=== PATIENT | female | born 1930 | race Caucasian/White ===

== ENCOUNTER 2017-02-28 21:20 | Inpatient (IN) | payer MEDICARE, MEDICAID ==
--- NOTE | 2017-02-28 21:46 | ED Physician Chart ---
Chief Complaint/HPI - Patient Information Date Seen:: 02/28/17 Time Seen:: 21:39 Chief Complaint:: failure to thrive History of Present Illness:: pt is a pt of dr almaguer. sent over for failure to thrive. pt has a rt side weakness from prior cva. usually is able to feed self. x last 4 days pt very weak. unable to speak or feed self at present which is acute change. Allergies:: Allergies Allergy/AdvReac Type Severity Reaction Status Date / Time Sulfa (Sulfonamide Allergy Verified 05/03/16 18:54 Antibiotics) Historian:: Medical Records Review:: Transfer documents Reviewed, Patient unable to respond Review of Systems - Review of Systems General/Constitutional: No fever, No chills, No weight loss, No weakness, No diaphoresis, No edema, No loss of appetite Skin: No skin lesions, No rash, No bruising Head: No headache, No light-headedness Eyes: No loss of vision, No pain, No diplopia ENT: No earache, No nasal drainage, No sore throat, No tinnitus Neck: No neck pain, No swelling, No thyromegaly, No stiffness, No mass noted Cardio Vascular: No chest pain, No palpitations, No PND, No orthopnea, No edema Pulmonary: No SOB, No cough, No sputum, No wheezing GI: No nausea, No vomiting, No diarrhea, No pain, No melena, No hematochezia, No constipation, No hematemesis G/U: No dysuria, No frequency, No hematuria Musculoskeletal: No bone or joint pain, No back pain, No muscle pain Endocrine: No polyuria, No polydipsia Psychiatric: No prior psych history, No depression, No anxiety, No suicidal ideation Hematopoietic: No bruising, No lymphadenopathy Allergic/Immuno: No urticaria, No angioedema Neurological: No syncope, No focal symptoms, Weakness (unable to feed self. rt side weak prior cva), No weakness, No paresthesia, No headache, No seizure, No dizziness, Confusion (nonverbal), No vertigo Past Medical History - Past Medical History Past Medical History: CVA/TIA (l side weak), Dementia Social History: Care Facility Psychiatricy History: Dementia Medication: Reviewed Family Medical History - Family Member Father History Unknown: Yes Ethnicity: Non- Living Status: Hx Family Cancer: No Hx Family Coronary Artery Disease: No Hx Family Congestive Heart Failure: No Hx Family Hypertension: No Hx Family Stroke: No Hx Family Diabetes: No Hx Family Seizures: No Hx Family Dementia: No Hx Family AIDS: No Hx Family HIV: No Hx Family COPD: No Hx Family Hepatitis: No Hx Family Psychiatric Problems: No Hx Family Tuberculosis: No Mother History Unknown: Yes Physical Exam - Physical Examination General/Constitutional: Awake, Well-developed, well-nourished, Alert, No distress, GCS 15, Non-toxic appearing, Ambulatory Other Gen/Cons comments:: oral mucosa very dry Head: Atraumatic Eyes: Lids, conjuctiva normal, PERRL, EOMI Skin: Nl inspection, No rash, No skin lesions, No ecchymosis, Well hydrated, No lymphadenopathy ENMT: External ears, nose nl, Nasal exam nl, Lips, teeth, gums nl Neck: Nontender, Full ROM w/o pain, No JVD, No nuchal rigidity, No bruit, No mass, No stridor Respiratory: Nl effort/Exclusion, Clear to Auscultation, No Wheeze/Rhonchi/Rales Cardio Vascular: RRR, No murmur, gallop, rubs, NL S1 S2 GI: No tenderness/rebounding/guarding, No organomegaly, No hernia, Normal BS's, Nondistended, No mass/bruits, No McBurney tenderness : No CVA tenderness Extremities: No tenderness or effusion, Full ROM, normal strength in all extremities, No edema, Normal digits & nails Neuro/Psych: DTR's symmetric, Normal sensory exam, No focal deficits Other Neuro/Psych comments:: nonverbal at present. rt side weak from prior cva. pt too confused to do close detailed neuro exam. Misc: normal gait, Normal back, No paraspinal tenderness Labs/Radiology/EKG Results - Lab Results Results: Laboratory Tests 02/28/17 02/28/17 02/28/17 22:19 22:19 22:19 WBC 15.1 H D RBC 3.99 Hgb 12.4 Hct 38.3 MCV 95.8 MCH 31.0 MCHC Differential 32.4 RDW 14.6 Plt Count 182 D MPV 8.9 Neutrophils % 78.5 Lymphocytes % 13.9 L Monocytes % 5.3 Eosinophils % 1.7 Basophils % 0.6 Sodium 145 Potassium 3.8 Chloride 115 H Carbon Dioxide 24.8 Anion Gap 9.0 BUN 19 Creatinine 0.8 Est GFR ( Amer) TNP Est GFR (Non-Af Amer) TNP BUN/Creatinine Ratio 23.8 Glucose 155 H Whole Bld Lactic Acid 2.47 H* Calcium 8.2 L Total Bilirubin 0.3 AST 27 ALT 40 Alkaline Phosphatase 64 Troponin I B-Natriuretic Peptide Total Protein 6.5 Albumin 2.6 L Globulin 3.9 Albumin/Globulin Ratio 0.7 L 02/28/17 22:19 WBC RBC Hgb Hct MCV MCH MCHC Differential RDW Plt Count MPV Neutrophils % Lymphocytes % Monocytes % Eosinophils % Basophils % Sodium Potassium Chloride Carbon Dioxide Anion Gap BUN Creatinine Est GFR ( Amer) Est GFR (Non-Af Amer) BUN/Creatinine Ratio Glucose Whole Bld Lactic Acid Calcium Total Bilirubin AST ALT Alkaline Phosphatase Troponin I 0.02 B-Natriuretic Peptide 122.0 H Total Protein Albumin Globulin Albumin/Globulin Ratio - Radiology Results Results: cxr blunting and indistinct at left costophrenic angle ED Septic Shock - . Is Septic Shock (SBP<90, OR Lactate>4 mmol\L) present?: No Reassessment (Disposition) - Reassessment Reassessment:: case dw dr almaguer..is admitting for hydration and tx poss pneumonia Reassessment Condition:: Unchanged - Diagnosis Diagnosis:: 1 dehydration 2 possible pneumonia 3 failure to thrive - Patient Disposition Admitted to:: Med/Surg Condition at Disposition:: Unchanged
[2017-02-28] MEDS ORDERED: Sodium Chloride 0.9% 1,000 ML IV ONE (21:47)
[2017-02-28 22:31] LABS: % BASOPHILS 0.6 % (0.0-2.0); % EOSINOPHILS 1.7 % (0.0-5.0); % LYMPHOCYTES 13.9 % (20.0-50.0); % MONOCYTES 5.3 % (2.0-10.0); % NEUTROPHILS 78.5 % (40.0-80.0); HEMATOCRIT 38.3 % (35.0-45.0); HEMOGLOBIN 12.4 gm/dL (11.7-16.1); MEAN CELL VOLUME 95.8 fl (81-100); MEAN CORPUSCULAR HGB CONC 32.4 pg (28.0-36.0); MEAN PLATELET VOLUME 8.9 fl; NEUTROPHILE ABSOLUTE 11.8 Th/cmm (1.8-8.0); RED BLOOD COUNT 3.99 Mil/cmm (3.80-5.20); RED CELL DISTRIBUTION WIDTH 14.6 % (11.5-20.0)
[2017-02-28 22:34] LABS: WHITE BLOOD COUNT 15.1 Th/cmm (4.8-10.8)
[2017-02-28 22:35] LABS: PLATELET COUNT 182 Th/cmm (150-400)
[2017-02-28 22:47] LABS: TROP I 0.02 ng/mL (0.01-0.05)
[2017-02-28 22:49] LABS: ALB/GLOB RATIO 0.7 (1.0-1.8); ALKALINE PHOSPHATASE 64 U/L (34-104); BILIRUBIN,TOTAL 0.3 mg/dL (0.3-1.0); BUN - UREA NITROGEN 19 mg/dL (7-25); BUN/CREATININE RATIO 23.8; CALCIUM SERUM 8.2 mg/dL (8.6-10.3); CARBON DIOXIDE 24.8 mEq/L (21.0-31.0); CHLORIDE 115 mEq/L (98-107); CREATININE - SERUM 0.8 mg/dL (0.6-1.2); GLUCOSE 155 mg/dL (70-105); POTASSIUM SERUM 3.8 mEq/L (3.5-5.1); SGOT 27 U/L (13-39); SGPT/ALT 40 U/L (7-52); SODIUM SERUM 145 mEq/L (136-145)
[2017-03-01] MEDS ORDERED: guaiFENesin 200 MG/10 ML UDC PO PRN (00:06)
[2017-03-01] MEDS ORDERED: D5-0.45NS 1,000 ML IV SCH (00:15)
[2017-03-01] MEDS: Ipratropium Neb 0.5 mg/2.5 mL UD IH SCH ×4 (08:53→19:37)
[2017-03-01] MEDS: Albuterol Nebulizer 2.5mg/3mL HHN SCH ×4 (08:53→19:37)
[2017-03-01] MEDS: Aspirin 81mg Chewable Tab PO SCH (09:22)
[2017-03-01] MEDS: Multivitamin w/ Minerals Tab PO SCH (09:22)
--- NOTE | 2017-03-01 11:15 | Diagnostic Imaging Report ---
CT scan of the brain without intravenous contrast HISTORY: Stroke, CVA Total DLP equals 582 CTDI equals 30.1 Axial sections were obtained from the base of the skull to the vertex. There is prominence/enlargement of the ventricular system size. Associated enlargement of cerebral sulci and subarachnoid cisterns. Findings are consistent with changes of generalized cerebral atrophy. No acute parenchymal abnormalities. No acute cerebral hemorrhage. Hypodensity is seen within the supratentorial white matter regions without mass effect. The findings may be associated with chronic small vessel ischemic disease. No extra-axial masses or abnormal fluid collections. IMPRESSION: 1. No acute abnormalities 2. Cerebral atrophy. The ventricular system size is rather pronounced imparity to the enlarged cerebral sulci and subarachnoid cisterns. Hydrocephalus cannot be definitely excluded. 3. Supratentorial white matter changes that may reflect chronic small vessel ischemic disease
--- NOTE | 2017-03-01 11:16 | Diagnostic Imaging Report ---
Portable chest x-ray HISTORY: Shortness of breath The overall heart size is difficult to assess with portable technique in of rib poor inspiration. Atherosclerotic calcification seen in the aorta. No acute focal pulmonary parenchymal processes. Arthritic changes noted about the shoulder regions. IMPRESSION: 1. No acute focal pulmonary processes 2. Atherosclerotic vascular changes
--- NOTE | 2017-03-01 12:29 | History and Physical ---
History of Present Illness - HPI Chief Complaint: POOR ORAL INTAKE HPI: THIS IS A 86 YEAR OLD FEMALE WELL KNOWN TO NE RESIDENT OF [facility] WHO HAS A 4 DAY HISTORY OF POOR ORAL INTAKE. PATIENT WAS GIVEN IVF FOR HYDRATION AND MEGACE 400MG DESPITE OF THE INTERVENTIONS DONE, PATIENT WAS STILL NOTED WITH POOR ORAL INTAKE, FOR THIS REASON PATIENT IS ADMITTED TO THE MEDSURG UNIT. Vital Signs: Last Vital Signs Temp 98.2 F 03/01/17 08:15 Pulse 85 03/01/17 08:54 Resp 18 03/01/17 08:54 BP 116/65 03/01/17 08:15 Pulse Ox 100 03/01/17 08:54 Past Medical History Cardiovascular: Report: No Pertinent Hx Pulmonary: Report: No Pertinent Hx REPORTING SPECIALIST: Report: Dementia GI: Report: Other (DYSPHAGIA) Psych: Report: Depression Musculoskeletal: Report: Other (MUSCLE WEAKNESS) Infectious Disease: Report: No Pertinent Hx Renal/: Report: No Pertinent Hx Endocrine: Report: No Pertinent Hx - Past Surgical History Past Surgical History: No pertinent Hx Family Medical History - Family Member Father History Unknown: Yes (NONCONTRIBUTORY) Ethnicity: Non- Living Status: Hx Family Cancer: No Hx Family Coronary Artery Disease: No Hx Family Congestive Heart Failure: No Hx Family Hypertension: No Hx Family Stroke: No Hx Family Diabetes: No Hx Family Seizures: No Hx Family Dementia: No Hx Family AIDS: No Hx Family HIV: No Hx Family COPD: No Hx Family Hepatitis: No Hx Family Psychiatric Problems: No Hx Family Tuberculosis: No Other Medical History: Pt. unable to state due to mental status Mother History Unknown: Yes Social History Smoke: No Alcohol: None Drugs: None Lives: Jail Health Maintenance Health Maintenance: Influenza Vaccine, Pneumococcal Vaccine - Medications Home Medications: Home Medication Medication Instructions Recorded Type Aspirin [Aspirin Chewable] 81 mg PO DAILY 12/24/14 History Magnesium Hydroxide [Milk of 30 ml PO HS 12/24/14 History Magnesia] Multivitamin, Minerals, and 39 1 tab PO DAILY 12/24/14 History [Multi Formula 50] Acetaminophen [Tylenol] 2 tab PO Q4H PRN 05/03/16 History Megestrol Acetate [Megace] 400 mg PO BID 05/03/16 History Cholecalciferol (Vitamin D3) 1,000 unit PO DAILY 02/28/17 History [Vitamin D3] Donepezil HCl [Donepezil HCl Odt] 5 mg PO HS 02/28/17 History Mirtazapine [Remeron*] 15 mg PO HS 02/28/17 History Sulfamethoxazole/TMP [Bactrim DS] 1 tab PO Q12HR 02/28/17 History - Allergies Allergies/Adverse Reactions: Allergies Allergy/AdvReac Type Severity Reaction Status Date / Time Sulfa (Sulfonamide Allergy Verified 05/03/16 18:54 Antibiotics) Review of Systems - Review of Systems Constitutional: Denies: Fever, Chills Eyes: Denies: Pain, Vision Change ENT: Denies: Ear Pain, Ear Discharge, Nose Pain Respiratory: Denies: Cough, Dry, Shortness of Breath Cardiovascular: Denies: Chest Pain, Edema Gastrointestinal: Denies: Nausea, Diarrhea, Constipation Genitourinary: Report: Incontinence. Denies: No Significant Musculoskeletal: Denies: Neck Pain, Shoulder Pain Skin: Denies: Rash Neurological: Report: Weakness Physical Exam - Physical Exam HEENT: Report: Ears Nose Throat within normal limits Neck: Report: Within normal limits Cardiovascular Systems: Report: +s1/s2 noted, Regular, Rate and Rhythm Respiratory: Report: Rhonchi Abdomen: Report: Non-tender to palpation, Bowel Sounds are within normal limits Back: Report: Inspection of back is within normal limits. Skin: Report: Color of skin is within normal limits Neuro/Psych: Report: A+Ox3, No motor deficit, No sensory deficit - Lab Results All Lab Results last 24 hours: Laboratory Last Values WBC 15.1 Th/cmm (4.8-10.8) H D 02/28/17 22:19 RBC 3.99 Mil/cmm (3.80-5.20) 02/28/17 22:19 Hgb 12.4 gm/dL (11.7-16.1) 02/28/17 22:19 Hct 38.3 % (35.0-45.0) 02/28/17 22:19 MCV 95.8 fl (81-100) 02/28/17 22:19 MCH 31.0 pg (27.0-31.0) 02/28/17 22: MCHC Differential 32.4 pg (28.0-36.0) 02/28/17 22: RDW 14.6 % (11.5-20.0) 02/28/17 22:19 Plt Count 182 Th/cmm (150-400) D 02/28/17 22:19 MPV 8.9 fl 02/28/17 22:19 Neutrophils % 78.5 % (40.0-80.0) 02/28/17 22:19 Lymphocytes % 13.9 % (20.0-50.0) L 02/28/17 22:19 Monocytes % 5.3 % (2.0-10.0) 02/28/17 22:19 Eosinophils % 1.7 % (0.0-5.0) 02/28/17 22:19 Basophils % 0.6 % (0.0-2.0) 02/28/17 22:19 Sodium 145 mEq/L (136-145) 02/28/17 22:19 Potassium 3.8 mEq/L (3.5-5.1) 02/28/17 22:19 Chloride 115 mEq/L (98-107) H 02/28/17 22:19 Carbon Dioxide 24.8 mEq/L (21.0-31.0) 02/28/17 22:19 Anion Gap 9.0 (7.0-16.0) 02/28/17 22:19 BUN 19 mg/dL (7-25) 02/28/17 22:19 Creatinine 0.8 mg/dL (0.6-1.2) 02/28/17 22:19 Est GFR ( Amer) TNP 02/28/17 22:19 Est GFR (Non-Af Amer) TNP 02/28/17 22:19 BUN/Creatinine Ratio 23.8 02/28/17 22:19 Glucose 155 mg/dL (70-105) H 02/28/17 22:19 Whole Bld Lactic Acid 1.75 mmol/L (0.60-1.99) 03/01/17 01:25 Calcium 8.2 mg/dL (8.6-10.3) L 02/28/17 22:19 Total Bilirubin 0.3 mg/dL (0.3-1.0) 02/28/17 22:19 AST 27 U/L (13-39) 02/28/17 22:19 ALT 40 U/L (7-52) 02/28/17 22:19 Alkaline Phosphatase 64 U/L (34-104) 02/28/17 22:19 Troponin I 0.02 ng/mL (0.01-0.05) 02/28/17 22:19 B-Natriuretic Peptide 122.0 pg/mL (5.0-100.0) H 02/28/17 22:19 Total Protein 6.5 gm/dL (6.0-8.3) 02/28/17 22:19 Albumin 2.6 gm/dL (3.7-5.3) L 02/28/17 22:19 Globulin 3.9 gm/dL 02/28/17 22:19 Albumin/Globulin Ratio 0.7 (1.0-1.8) L 02/28/17 22:19 Laboratory Results - last 24 hr 03/01/17 01:25 Whole Bld Lactic Acid 1.75 - Assessment Assessment: LACTIC ACIDOSIS FAILURE TO THRIVE POOR ORAL INTAKE POSSIBLE PNA DYSPHAGIA DEMENTIA HX CVA - Plan Plan: EMPIRIC IVABX CALORIE COUNT IVF FOR HYDRATION ASPIRATION PRECAUTION PSYCH CONSULT AM LABS MONITOR ELECTROLYTE LEVELS
--- NOTE | 2017-03-01 12:37 | Internal Medicine Prog Note ---
Internal Medicine Subjective - Subjective Service Date: 03/01/17 Internal Medicine Objective - Results Result Diagrams: 02/28/17 22:19 02/28/17 22:19 Recent Labs: Laboratory Last Values WBC 15.1 Th/cmm (4.8-10.8) H D 02/28/17 22:19 RBC 3.99 Mil/cmm (3.80-5.20) 02/28/17 22:19 Hgb 12.4 gm/dL (11.7-16.1) 02/28/17 22:19 Hct 38.3 % (35.0-45.0) 02/28/17 22:19 MCV 95.8 fl (81-100) 02/28/17 22:19 MCH 31.0 pg (27.0-31.0) 02/28/17 22:19 MCHC Differential 32.4 pg (28.0-36.0) 02/28/17 22:19 RDW 14.6 % (11.5-20.0) 02/28/17 22:19 Plt Count 182 Th/cmm (150-400) D 02/28/17 22:19 MPV 8.9 fl 02/28/17 22:19 Neutrophils % 78.5 % (40.0-80.0) 02/28/17 22:19 Lymphocytes % 13.9 % (20.0-50.0) L 02/28/17 22:19 Monocytes % 5.3 % (2.0-10.0) 02/28/17 22:19 Eosinophils % 1.7 % (0.0-5.0) 02/28/17 22:19 Basophils % 0.6 % (0.0-2.0) 02/28/17 22:19 Sodium 145 mEq/L (136-145) 02/28/17 22:19 Potassium 3.8 mEq/L (3.5-5.1) 02/28/17 22:19 Chloride 115 mEq/L (98-107) H 02/28/17 22:19 Carbon Dioxide 24.8 mEq/L (21.0-31.0) 02/28/17 22:19 Anion Gap 9.0 (7.0-16.0) 02/28/17 22:19 BUN 19 mg/dL (7-25) 02/28/17 22:19 Creatinine 0.8 mg/dL (0.6-1.2) 02/28/17 22:19 Est GFR ( Amer) TNP 02/28/17 22:19 Est GFR (Non-Af Amer) TNP 02/28/17 22:19 BUN/Creatinine Ratio 23.8 02/28/17 22:19 Glucose 155 mg/dL (70-105) H 02/28/17 22:19 Whole Bld Lactic Acid 1.75 mmol/L (0.60-1.99) 03/01/17 01:25 Calcium 8.2 mg/dL (8.6-10.3) L 02/28/17 22:19 Total Bilirubin 0.3 mg/dL (0.3-1.0) 02/28/17 22:19 AST 27 U/L (13-39) 02/28/17 22:19 ALT 40 U/L (7-52) 02/28/17 22:19 Alkaline Phosphatase 64 U/L (34-104) 02/28/17 22:19 Troponin I 0.02 ng/mL (0.01-0.05) 02/28/17 22:19 B-Natriuretic Peptide 122.0 pg/mL (5.0-100.0) H 02/28/17 22:19 Total Protein 6.5 gm/dL (6.0-8.3) 02/28/17 22:19 Albumin 2.6 gm/dL (3.7-5.3) L 02/28/17 22:19 Globulin 3.9 gm/dL 02/28/17 22:19 Albumin/Globulin Ratio 0.7 (1.0-1.8) L 02/28/17 22:19 - Physical Exam Vitals and I&O: Vital Signs Temp 98.2 F 03/01/17 08:15 Pulse 85 03/01/17 08:54 Resp 18 03/01/17 08:54 BP 116/65 03/01/17 08:15 Pulse Ox 100 03/01/17 08:54 Intake & Output 02/28/17 03/01/17 03/01/17 18:59 06:59 18:59 Weight (lbs) 126 lb Active Medications: Current Medications Acetaminophen (Tylenol) 650 mg PO Q4H PRN PRN Reason: Pain Or Fever above 101 Stop: 04/30/17 00:05 Albuterol Sulfate (Albuterol 2.5mg/3ml Neb Ud) 2.5 mg HHN QIDRT [facility] Stop: 04/30/17 06:59 Last Admin: 03/01/17 08:53 Dose: 2.5 mg Aspirin (Aspirin Chewable) 81 mg PO DAILY [facility] Stop: 04/30/17 08:59 Last Admin: 03/01/17 09:22 Dose: 81 mg Cholecalciferol (Vitamin D3) 1,000 iu PO DAILY [facility] Stop: 04/30/17 08:59 Last Admin: 03/01/17 09:22 Dose: 1,000 iu Donepezil HCl (Aricept) 5 mg PO HS [facility] Stop: 04/30/17 20:59 Guaifenesin (Robitussin) 200 mg PO Q4HR PRN PRN Reason: Cough or Congestion Stop: 04/30/17 00:05 Dextrose/Sodium Chloride (D5-0.45ns) 1,000 mls @ 100 mls/hr IV .Q10H [facility] Stop: 04/30/17 00:14 Last Admin: 03/01/17 09:23 Dose: 100 mls/hr Cefepime HCl 1 gm/ Dextrose 50 mls @ 100 mls/hr IV Q12HR [facility] Stop: 04/30/17 08:59 Last Admin: 03/01/17 09:24 Dose: 100 mls/hr Ipratropium [place] (Atrovent Neb 0.5mg/2.5ml) 0.5 mg IH QIDRT [facility] Stop: 04/30/17 06:59 Last Admin: 03/01/17 08:53 Dose: 0.5 mg Magnesium Hydroxide (Milk Of Magnesia) 30 ml PO HS [facility] Stop: 04/30/17 20:59 Megestrol Acetate (Megace) 400 mg PO BID [facility] Stop: 04/30/17 08:59 Last Admin: 03/01/17 09:22 Dose: 400 mg Ondansetron HCl (Zofran) 4 mg IV Q8H PRN PRN Reason: Nausea / Vomiting Stop: 04/30/17 00:05 - Procedures Procedures: Procedures Procedure Code Date OTHER GROUP THERAPY 94.44 03/07/14 Internal Medicine Assmt/Plan - Assessment Assessment: SEVERE PROTEIN CALORIE MALNUTRITION LACTIC ACIDOSIS FAILURE TO THRIVE POOR ORAL INTAKE POSSIBLE PNA DYSPHAGIA DEMENTIA HX CVA - Plan Plan: EMPIRIC IVABX CALORIE COUNT IVF FOR HYDRATION ASPIRATION PRECAUTION PSYCH CONSULT AM LABS MONITOR ELECTROLYTE LEVELS
[2017-03-01] MEDS ORDERED: VTE Chemical Prophylaxis Screen/Admission MC PRN (14:18)
[2017-03-01] MEDS: Magnesium Hydroxide (MOM) 30 mL UDC PO SCH (21:59)
[2017-03-01] MEDS: D5-0.45NS 1,000 ML IV SCH (22:00)
[2017-03-02] MEDS: Albuterol Nebulizer 2.5mg/3mL HHN SCH ×4 (07:13→19:50)
[2017-03-02] MEDS: Ipratropium Neb 0.5 mg/2.5 mL UD IH SCH ×4 (07:13→19:50)
[2017-03-02 07:14] LABS: % BASOPHILS 0.3 % (0.0-2.0); % MONOCYTES 8.6 % (2.0-10.0); % NEUTROPHILS 67.1 % (40.0-80.0); HEMOGLOBIN 11.2 gm/dL (11.7-16.1); MEAN CELL VOLUME 96.1 fl (81-100); MEAN CORPUSCULAR HGB CONC 33.3 pg (28.0-36.0); MEAN PLATELET VOLUME 8.8 fl; NEUTROPHILE ABSOLUTE 7.4 Th/cmm (1.8-8.0); PLATELET COUNT 163 Th/cmm (150-400); RED CELL DISTRIBUTION WIDTH 14.1 % (11.5-20.0)
[2017-03-02 07:16] LABS: ANION GAP 6.2 (7.0-16.0); BUN - UREA NITROGEN 15 mg/dL (7-25); BUN/CREATININE RATIO 21.4; CALCIUM SERUM 8.1 mg/dL (8.6-10.3); CARBON DIOXIDE 23.4 mEq/L (21.0-31.0); CHLORIDE 114 mEq/L (98-107); CREATININE - SERUM 0.7 mg/dL (0.6-1.2); GLUCOSE 115 mg/dL (70-105); POTASSIUM SERUM 3.6 mEq/L (3.5-5.1); SODIUM SERUM 140 mEq/L (136-145)
[2017-03-02 07:27] LABS: HEMATOCRIT 33.6 % (35.0-45.0); WHITE BLOOD COUNT 10.9 Th/cmm (4.8-10.8)
[2017-03-02] MEDS: Aspirin 81mg Chewable Tab PO SCH (09:14)
[2017-03-02] MEDS: Multivitamin w/ Minerals Tab PO SCH (09:14)
--- NOTE | 2017-03-02 10:48 | Diagnostic Imaging Report ---
Portable chest x-ray Time: 1030 hours History: Pneumonia Allowing for portable technique the heart size is normal. No focal pulmonary parenchymal processes. No hilar or mediastinal abnormalities. Aortic arch calcified. Mild COPD changes are noted. Impression: No acute abnormalities.
--- NOTE | 2017-03-02 12:11 | Internal Medicine Prog Note ---
Internal Medicine Subjective - Subjective Service Date: 03/02/17 (PER NURSING STAFF PATIENT STILL HAS POOR ORAL INTAKE. PATIENT HAD A SWALLOW EVAL TODAY AND PASSED WITH PUREE DIET) Patient seen and examined:: with staff Patient is:: awake Patient Complaints of:: cough Per staff patient has:: poor appetite, poor oral intake Internal Medicine Objective - Results Result Diagrams: 03/02/17 06:40 03/02/17 06:40 Recent Labs: Laboratory Last Values WBC 10.9 Th/cmm (4.8-10.8) H D 03/02/17 06:40 RBC 3.50 Mil/cmm (3.80-5.20) L 03/02/17 06:40 Hgb 11.2 gm/dL (11.7-16.1) L 03/02/17 06:40 Hct 33.6 % (35.0-45.0) L D 03/02/17 06:40 MCV 96.1 fl (81-100) 03/02/17 06:40 MCH 32.0 pg (27.0-31.0) H 03/02/17 06:40 MCHC Differential 33.3 pg (28.0-36.0) 03/02/17 06:40 RDW 14.1 % (11.5-20.0) 03/02/17 06:40 Plt Count 163 Th/cmm (150-400) 03/02/17 06:40 MPV 8.8 fl 03/02/17 06:40 Neutrophils % 67.1 % (40.0-80.0) 03/02/17 06:40 Lymphocytes % 21.0 % (20.0-50.0) 03/02/17 06:40 Monocytes % 8.6 % (2.0-10.0) 03/02/17 06:40 Eosinophils % 3.0 % (0.0-5.0) 03/02/17 06:40 Basophils % 0.3 % (0.0-2.0) 03/02/17 06:40 Sodium 140 mEq/L (136-145) 03/02/17 06:40 Potassium 3.6 mEq/L (3.5-5.1) 03/02/17 06:40 Chloride 114 mEq/L (98-107) H 03/02/17 06:40 Carbon Dioxide 23.4 mEq/L (21.0-31.0) 03/02/17 06:40 Anion Gap 6.2 (7.0-16.0) L 03/02/17 06:40 BUN 15 mg/dL (7-25) 03/02/17 06:40 Creatinine 0.7 mg/dL (0.6-1.2) 03/02/17 06:40 Est GFR ( Amer) TNP 03/02/17 06:40 Est GFR (Non-Af Amer) TNP 03/02/17 06:40 BUN/Creatinine Ratio 21.4 03/02/17 06:40 Glucose 115 mg/dL (70-105) H 03/02/17 06:40 Whole Bld Lactic Acid 1.75 mmol/L (0.60-1.99) 03/01/17 01:25 Calcium 8.1 mg/dL (8.6-10.3) L 03/02/17 06:40 Total Bilirubin 0.3 mg/dL (0.3-1.0) 02/28/17 22:19 AST 27 U/L (13-39) 02/28/17 22:19 ALT 40 U/L (7-52) 02/28/17 22:19 Alkaline Phosphatase 64 U/L (34-104) 02/28/17 22:19 Ammonia 45 umol/L (16-53) 03/02/17 06:40 Troponin I 0.02 ng/mL (0.01-0.05) 02/28/17 22:19 B-Natriuretic Peptide 122.0 pg/mL (5.0-100.0) H 02/28/17 22:19 Total Protein 6.5 gm/dL (6.0-8.3) 02/28/17 22:19 Albumin 2.6 gm/dL (3.7-5.3) L 02/28/17 22:19 Globulin 3.9 gm/dL 02/28/17 22:19 Albumin/Globulin Ratio 0.7 (1.0-1.8) L 02/28/17 22:19 - Physical Exam Vitals and I&O: Vital Signs Temp 98.2 F 03/02/17 04:00 Pulse 84 03/02/17 07:13 Resp 20 03/02/17 08:00 BP 102/56 03/02/17 04:00 Pulse Ox 98 03/02/17 07:13 Intake & Output 03/01/17 03/02/17 03/02/17 18:59 06:59 18:59 Intake Total 100 Balance 100 Weight (lbs) 157 lb 157 lb Intake: Intake, IV Amount 100 Cefepime 1 gm In Dextrose 100 5% 50 ml @ 100 mls/hr IV Q12HR [facility] Rx#:[id number] Other: # Voids 3 1 # Bowel Movements 1 Active Medications: Current Medications Acetaminophen (Tylenol) 650 mg PO Q4H PRN PRN Reason: Pain Or Fever above 101 Stop: 04/30/17 00:05 Albuterol Sulfate (Albuterol 2.5mg/3ml Neb Ud) 2.5 mg HHN QIDRT [facility] Stop: 04/30/17 06:59 Last Admin: 03/02/17 07:13 Dose: 2.5 mg Aspirin (Aspirin Chewable) 81 mg PO DAILY [facility] Stop: 04/30/17 08:59 Last Admin: 03/02/17 09:14 Dose: 81 mg Cholecalciferol (Vitamin D3) 1,000 iu PO DAILY [facility] Stop: 04/30/17 08:59 Last Admin: 03/02/17 09:14 Dose: 1,000 iu Donepezil HCl (Aricept) 5 mg PO HS [facility] Stop: 04/30/17 20:59 Last Admin: 03/01/17 21:38 Dose: 5 mg Guaifenesin (Robitussin) 200 mg PO Q4HR PRN PRN Reason: Cough or Congestion Stop: 04/30/17 00:05 Heparin Sodium (Porcine) (Heparin) 5,000 units SUBQ Q12HR [facility] Stop: 04/30/17 20:59 Last Admin: 03/02/17 10:15 Dose: 5,000 units Cefepime HCl 1 gm/ Dextrose 50 mls @ 100 mls/hr IV Q12HR [facility] Stop: 04/30/17 08:59 Last Admin: 03/02/17 10:16 Dose: 100 mls/hr Dextrose/Sodium Chloride (D5-0.45ns) 1,000 mls @ 80 mls/hr IV .[id number] [facility] Stop: 04/30/17 00:14 Last Admin: 03/01/17 22:00 Dose: 80 mls/hr Ipratropium [place] (Atrovent Neb 0.5mg/2.5ml) 0.5 mg IH QIDRT [facility] Stop: 04/30/17 06:59 Last Admin: 03/02/17 07:13 Dose: 0.5 mg Magnesium Hydroxide (Milk Of Magnesia) 30 ml PO HS [facility] Stop: 04/30/17 20:59 Last Admin: 03/01/17 21:59 Dose: 30 ml Megestrol Acetate (Megace) 400 mg PO BID [facility] Stop: 04/30/17 08:59 Last Admin: 03/02/17 09:14 Dose: 400 mg Miscellaneous ([employer] Prophylaxis Screen/ Admission) 1 ea [facility] PRN PRN PRN Reason: PROTOCOL Stop: 04/30/17 14:17 Ondansetron HCl (Zofran) 4 mg IV Q8H PRN PRN Reason: Nausea / Vomiting Stop: 04/30/17 00:05 General: weak, alert HEENT: NC/AT Neck: Supple Lungs: congested Cardiovascular: RRR, Normal S1, Normal S2, without murmur Abdomen: soft, non-tender, non-distended, positive bowel sound Extremities: excoriation Neurological: alert, muscle weakness - Procedures Procedures: Procedures Procedure Code Date OTHER GROUP THERAPY 94.44 03/07/14 Internal Medicine Assmt/Plan - Assessment Assessment: SEVERE PROTEIN CALORIE MALNUTRITION LACTIC ACIDOSIS FAILURE TO THRIVE POOR ORAL INTAKE POSSIBLE PNA DYSPHAGIA DEMENTIA HX CVA - Plan Plan: SWALLOW EVAL EMPIRIC IVABX CALORIE COUNT IVF FOR HYDRATION ASPIRATION PRECAUTION AM LABS MONITOR ELECTROLYTE LEVELS
[2017-03-02] MEDS: Magnesium Hydroxide (MOM) 30 mL UDC PO SCH (20:45)
[2017-03-02] MEDS: D5-0.45NS 1,000 ML IV SCH (20:48)
[2017-03-03] MEDS: Albuterol Nebulizer 2.5mg/3mL HHN SCH ×4 (07:00→18:59)
[2017-03-03] MEDS: Ipratropium Neb 0.5 mg/2.5 mL UD IH SCH ×4 (07:00→18:59)
[2017-03-03 07:33] LABS: % BASOPHILS 0.1 % (0.0-2.0); % EOSINOPHILS 3.2 % (0.0-5.0); % LYMPHOCYTES 22.8 % (20.0-50.0); % MONOCYTES 6.8 % (2.0-10.0); % NEUTROPHILS 67.1 % (40.0-80.0); HEMOGLOBIN 9.9 gm/dL (11.7-16.1); MEAN CELL VOLUME 94.6 fl (81-100); MEAN CORPUSCULAR HEMOGLOBIN 31.4 pg (27.0-31.0); MEAN CORPUSCULAR HGB CONC 33.2 pg (28.0-36.0); MEAN PLATELET VOLUME 8.9 fl; NEUTROPHILE ABSOLUTE 5.4 Th/cmm (1.8-8.0); PLATELET COUNT 186 Th/cmm (150-400); RED BLOOD COUNT 3.14 Mil/cmm (3.80-5.20); RED CELL DISTRIBUTION WIDTH 13.7 % (11.5-20.0)
[2017-03-03 08:03] LABS: WHITE BLOOD COUNT 8.2 Th/cmm (4.8-10.8)
[2017-03-03 08:04] LABS: HEMATOCRIT 29.7 % (35.0-45.0)
[2017-03-03 08:11] LABS: ANION GAP 5.4 (7.0-16.0); BUN - UREA NITROGEN 11 mg/dL (7-25); BUN/CREATININE RATIO 15.7; CARBON DIOXIDE 25.3 mEq/L (21.0-31.0); CHLORIDE 114 mEq/L (98-107); CREATININE - SERUM 0.7 mg/dL (0.6-1.2); GLUCOSE 124 mg/dL (70-105); POTASSIUM SERUM 3.7 mEq/L (3.5-5.1); SODIUM SERUM 141 mEq/L (136-145)
[2017-03-03] MEDS: Multivitamin w/ Minerals Tab PO SCH (09:11)
[2017-03-03] MEDS: Aspirin 81mg Chewable Tab PO SCH (09:11)
[2017-03-03] MEDS: D5-0.45NS 1,000 ML IV SCH (13:00)
--- NOTE | 2017-03-03 15:13 | Internal Medicine Prog Note ---
Internal Medicine Subjective - Subjective Service Date: 03/03/17 (+3 EDEMA ON RIGHT HAND ) Patient seen and examined:: with staff Patient is:: awake Patient Complaints of:: cough Per staff patient has:: poor appetite, poor oral intake Internal Medicine Objective - Results Result Diagrams: 03/03/17 07:00 03/03/17 07:00 Recent Labs: Laboratory Last Values WBC 8.2 Th/cmm (4.8-10.8) D 03/03/17 07:00 RBC 3.14 Mil/cmm (3.80-5.20) L 03/03/17 07:00 Hgb 9.9 gm/dL (11.7-16.1) L 03/03/17 07:00 Hct 29.7 % (35.0-45.0) L D 03/03/17 07:00 MCV 94.6 fl (81-100) 03/03/17 07:00 MCH 31.4 pg (27.0-31.0) H 03/03/17 07:00 MCHC Differential 33.2 pg (28.0-36.0) 03/03/17 07:00 RDW 13.7 % (11.5-20.0) 03/03/17 07:00 Plt Count 186 Th/cmm (150-400) 03/03/17 07:00 MPV 8.9 fl 03/03/17 07:00 Neutrophils % 67.1 % (40.0-80.0) 03/03/17 07:00 Lymphocytes % 22.8 % (20.0-50.0) 03/03/17 07:00 Monocytes % 6.8 % (2.0-10.0) 03/03/17 07:00 Eosinophils % 3.2 % (0.0-5.0) 03/03/17 07:00 Basophils % 0.1 % (0.0-2.0) 03/03/17 07:00 Sodium 141 mEq/L (136-145) 03/03/17 07:00 Potassium 3.7 mEq/L (3.5-5.1) 03/03/17 07:00 Chloride 114 mEq/L (98-107) H 03/03/17 07:00 Carbon Dioxide 25.3 mEq/L (21.0-31.0) 03/03/17 07:00 Anion Gap 5.4 (7.0-16.0) L 03/03/17 07:00 BUN 11 mg/dL (7-25) 03/03/17 07:00 Creatinine 0.7 mg/dL (0.6-1.2) 03/03/17 07:00 Est GFR ( Amer) TNP 03/03/17 07:00 Est GFR (Non-Af Amer) TNP 03/03/17 07:00 BUN/Creatinine Ratio 15.7 03/03/17 07:00 Glucose 124 mg/dL (70-105) H 03/03/17 07:00 Whole Bld Lactic Acid 1.75 mmol/L (0.60-1.99) 03/01/17 01:25 Calcium 8.0 mg/dL (8.6-10.3) L 03/03/17 07:00 Total Bilirubin 0.3 mg/dL (0.3-1.0) 02/28/17 22:19 AST 27 U/L (13-39) 02/28/17 22:19 ALT 40 U/L (7-52) 02/28/17 22:19 Alkaline Phosphatase 64 U/L (34-104) 02/28/17 22:19 Ammonia 45 umol/L (16-53) 03/02/17 06:40 Troponin I 0.02 ng/mL (0.01-0.05) 02/28/17 22:19 B-Natriuretic Peptide 122.0 pg/mL (5.0-100.0) H 02/28/17 22:19 Total Protein 6.5 gm/dL (6.0-8.3) 02/28/17 22:19 Albumin 2.6 gm/dL (3.7-5.3) L 02/28/17 22:19 Globulin 3.9 gm/dL 02/28/17 22:19 Albumin/Globulin Ratio 0.7 (1.0-1.8) L 02/28/17 22:19 - Physical Exam Vitals and I&O: Vital Signs Temp 98.4 F 03/03/17 08:00 Pulse 83 03/03/17 11:15 Resp 18 03/03/17 11:15 BP 105/53 03/03/17 08:00 Pulse Ox 99 03/03/17 11:15 Intake & Output 03/02/17 03/03/17 03/03/17 18:59 06:59 18:59 Intake Total 3930 074 5096 Balance 4382 348 6901 Weight (lbs) 157 lb 157 lb Intake: Intake, IV Amount 1050 50 1050 Cefepime 1 gm In Dextrose 50 50 50 5% 50 ml @ 100 mls/hr IV Q12HR [facility] Rx#:[id number] D5-0.45NS 1,000 ml @ 80 1000 1000 mls/hr IV .[id number] [facility] Rx #:[id number] Oral 60 Other: # Voids 1 3 # Bowel Movements 1 Active Medications: Current Medications Acetaminophen (Tylenol) 650 mg PO Q4H PRN PRN Reason: Pain Or Fever above 101 Stop: 04/30/17 00:05 Albuterol Sulfate (Albuterol 2.5mg/3ml Neb Ud) 2.5 mg HHN QIDRT [facility] Stop: 04/30/17 06:59 Last Admin: 03/03/17 14:58 Dose: 2.5 mg Aspirin (Aspirin Chewable) 81 mg PO DAILY [facility] Stop: 04/30/17 08:59 Last Admin: 03/03/17 09:11 Dose: 81 mg Cholecalciferol (Vitamin D3) 1,000 iu PO DAILY [facility] Stop: 04/30/17 08:59 Last Admin: 03/03/17 09:11 Dose: 1,000 iu Donepezil HCl (Aricept) 5 mg PO HS [facility] Stop: 04/30/17 20:59 Last Admin: 03/01/17 21:38 Dose: 5 mg Guaifenesin (Robitussin) 200 mg PO Q4HR PRN PRN Reason: Cough or Congestion Stop: 04/30/17 00:05 Heparin Sodium (Porcine) (Heparin) 5,000 units SUBQ Q12HR [facility] Stop: 04/30/17 20:59 Last Admin: 03/03/17 09:10 Dose: 5,000 units Cefepime HCl 1 gm/ Dextrose 50 mls @ 100 mls/hr IV Q12HR [facility] Stop: 04/30/17 08:59 Last Infusion: 03/03/17 10:00 Dose: Infused Dextrose/Sodium Chloride (D5-0.45ns) 1,000 mls @ 80 mls/hr IV .[id number] [facility] Stop: 04/30/17 00:14 Last Admin: 03/03/17 13:00 Dose: 80 mls/hr Ipratropium [place] (Atrovent Neb 0.5mg/2.5ml) 0.5 mg IH QIDRT [facility] Stop: 04/30/17 06:59 Last Admin: 03/03/17 14:58 Dose: 0.5 mg Magnesium Hydroxide (Milk Of Magnesia) 30 ml PO HS [facility] Stop: 04/30/17 20:59 Last Admin: 03/02/17 20:45 Dose: 30 ml Megestrol Acetate (Megace) 400 mg PO BID [facility] Stop: 04/30/17 08:59 Last Admin: 03/03/17 09:11 Dose: 400 mg Miscellaneous (Vte Chemical Prophylaxis Screen/ Admission) 1 ea MC PRN PRN PRN Reason: PROTOCOL Stop: 04/30/17 14:17 Mupirocin (Bactroban Oint) 1 appl NS BID [facility] Stop: 03/07/17 09:01 Last Admin: 03/03/17 09:14 Dose: 1 appl Ondansetron HCl (Zofran) 4 mg IV Q8H PRN PRN Reason: Nausea / Vomiting Stop: 04/30/17 00:05 General: weak, alert HEENT: NC/AT Neck: Supple Lungs: congested Cardiovascular: RRR, Normal S1, Normal S2, without murmur Abdomen: soft, non-tender, non-distended, positive bowel sound Extremities: excoriation Neurological: alert, muscle weakness - Procedures Procedures: Procedures Procedure Code Date OTHER GROUP THERAPY 94.44 03/07/14 Internal Medicine Assmt/Plan - Assessment Assessment: SEVERE PROTEIN CALORIE MALNUTRITION LACTIC ACIDOSIS FAILURE TO THRIVE POOR ORAL INTAKE POSSIBLE PNA DYSPHAGIA DEMENTIA HX CVA - Plan Plan: EMPIRIC IVABX IVF FOR HYDRATION ASPIRATION PRECAUTION AM LABS MONITOR ELECTROLYTE LEVELS Nutritional Asmnt/Malnutr-PDOC - Dietary Evaluation Malnutrition Findings (Please click <Entered> for more info): Nutritional Asmnt/Malnutrition Start: 03/02/17 16: 37 Text: Status: Complete Freq: Document 03/02/17 16:37 GSUN (Rec: 03/02/17 16:49 GSUN [email or web address]) Nutritional Asmnt/Malnutrition Patient General Information Nutritional Screening Consult Diagnosis Lactic acidosis, FTT, poor PO intake, possible PNA Pertinent Medical Hx/Surgical Hx Dementia, dysphagia, depression, muscle weakness, CVA Subjective Information 86 year old female from SNF. RD consult for low Sean and calorie count. 4 day hx of poor PO intake per H&P. 03/01 pt passed swallow eval for pureed [place] thick. Spoke to nursing staff in room, pt ate <25% of breakfast and lunch today. CBW 135lb via bedscale. Mild to moderate wasting to chest and clavicles, no severe wasting noted. Pt is edentulous. RD asked several questions, pt responses were non sensical, difficult to udnerstand. Current Diet Order/ Nutrition Support Pureed, [place] thick Pertinent Medications Vitamin D3, D5-0.45ns, MOM, Megace, Zofran Pertinent Labs Reviewed. Nutritional Hx/Data Height 5 ft 4 in Height (Calculated Centimeters) 162.6 Current Weight (lbs) 135 lb Weight (Calculated Kilograms) 61.2 Weight (Calculated Grams) 05102.0 [place] Body Weight 120 Weight Status Approriate GI Symptoms Usual diet at home [place] [facility]: pureed. Skin Integrity/Comment: Sean 14. Wound care 03/01: skin is fair, sacral/buttock redness. Current %PO Negligible < 25% Estimated Nutritional Goals BEE in Kcals: Using Current wt Calories/Kcals/Kg CBW 135lb/61.4kg Kcals Calculated 1535-1842kcal (25-30kcal/kg) Protein: Using Current wt Protein Calculated 61-74g (1-1.2g/kg) Fluid: ml 1335-1842ml (1ml/kcal) Nutritional Problem 1. Problem Problem Inadequate oral food beverage intake related to Etiology unknwon etiology, possibly cognition aeb Signs/Symptoms: 4 day hx poor PO intake per H& P, megace ordered, calorie count, nursing staff report < 25% of 2 meals since adm Intervention/Recommendation Comments 1. Calorie Count started 03/02 breakfast and to end 03/03 after dinner. 2. Continue with current diet order. Expected Outcomes/Goals Expected Outcomes/Goals 1. PO intake to meet at least 75% of estimated nutritional needs.
[2017-03-03] MEDS: Magnesium Hydroxide (MOM) 30 mL UDC PO SCH (20:55)
[2017-03-04] MEDS: D5-0.45NS 1,000 ML IV SCH ×3 (04:59→22:25)
[2017-03-04 06:49] LABS: BUN - UREA NITROGEN 7 mg/dL (7-25); BUN/CREATININE RATIO 11.7; CALCIUM SERUM 7.8 mg/dL (8.6-10.3); CARBON DIOXIDE 25.5 mEq/L (21.0-31.0); CHLORIDE 110 mEq/L (98-107); CREATININE - SERUM 0.6 mg/dL (0.6-1.2); GLUCOSE 147 mg/dL (70-105); POTASSIUM SERUM 3.5 mEq/L (3.5-5.1); SODIUM SERUM 139 mEq/L (136-145)
[2017-03-04 07:04] LABS: % BASOPHILS 1.1 % (0.0-2.0); % EOSINOPHILS 3.2 % (0.0-5.0); % LYMPHOCYTES 25.9 % (20.0-50.0); % MONOCYTES 5.9 % (2.0-10.0); % NEUTROPHILS 63.9 % (40.0-80.0); HEMATOCRIT 28.3 % (35.0-45.0); HEMOGLOBIN 9.6 gm/dL (11.7-16.1); MEAN CELL VOLUME 94.4 fl (81-100); MEAN CORPUSCULAR HEMOGLOBIN 32.1 pg (27.0-31.0); MEAN PLATELET VOLUME 9.1 fl; PLATELET COUNT 210 Th/cmm (150-400); WHITE BLOOD COUNT 7.8 Th/cmm (4.8-10.8)
[2017-03-04] MEDS: Albuterol Nebulizer 2.5mg/3mL HHN SCH ×4 (07:17→19:12)
[2017-03-04] MEDS: Ipratropium Neb 0.5 mg/2.5 mL UD IH SCH ×4 (07:17→19:13)
[2017-03-04] MEDS: Multivitamin w/ Minerals Tab PO SCH (09:38)
[2017-03-04] MEDS: Aspirin 81mg Chewable Tab PO SCH (10:14)
[2017-03-04 11:14] LABS: FOLIC ACID 6.6 ng/mL (>3.0)
[2017-03-04 13:52] LABS: URINE BILIRUBIN NEGATIVE (NEGATIVE); URINE BLOOD NEGATIVE (NEGATIVE); URINE COLOR YELLOW; URINE GLUCOSE (UA) NEGATIVE (NEGATIVE); URINE KETONE NEGATIVE (NEGATIVE); URINE PH 6.5; URINE PROTEIN NEGATIVE (NEGATIVE); URINE UROBILINOGEN 0.2 E.U./dL (0.2 - 1.0)
[2017-03-04 13:53] LABS: URINE BACTERIA NONE SEEN /hpf (NONE SEEN); URINE EPITHELIAL CELLS RARE /lpf (FEW); URINE RBC 0-2 /hpf (0-5); URINE WBC 0-2 /hpf (0-5)
--- NOTE | 2017-03-04 15:06 | Internal Medicine Prog Note ---
Internal Medicine Subjective - Subjective Patient seen and examined:: with staff, chart reviewed Patient is:: awake, verbal, non-interactive, in bed, talking, confused, congested Patient Complaints of:: cough Per staff patient has:: poor appetite, poor oral intake, noncompliant, confused , tolerating meds, refusing care Internal Medicine Objective - Results Result Diagrams: 03/04/17 06:18 03/04/17 06:18 Recent Labs: Laboratory Last Values WBC 7.8 Th/cmm (4.8-10.8) 03/04/17 06:18 RBC 3.00 Mil/cmm (3.80-5.20) L 03/04/17 06:18 Hgb 9.6 gm/dL (11.7-16.1) L 03/04/17 06:18 Hct 28.3 % (35.0-45.0) L 03/04/17 06:18 MCV 94.4 fl (81-100) 03/04/17 06:18 MCH 32.1 pg (27.0-31.0) H 03/04/17 06:18 MCHC Differential 34.0 pg (28.0-36.0) 03/04/17 06:18 RDW 14.0 % (11.5-20.0) 03/04/17 06:18 Plt Count 210 Th/cmm (150-400) 03/04/17 06:18 MPV 9.1 fl 03/04/17 06:18 Neutrophils % 63.9 % (40.0-80.0) 03/04/17 06:18 Lymphocytes % 25.9 % (20.0-50.0) 03/04/17 06:18 Monocytes % 5.9 % (2.0-10.0) 03/04/17 06:18 Eosinophils % 3.2 % (0.0-5.0) 03/04/17 06:18 Basophils % 1.1 % (0.0-2.0) 03/04/17 06:18 Sodium 139 mEq/L (136-145) 03/04/17 06:18 Potassium 3.5 mEq/L (3.5-5.1) 03/04/17 06:18 Chloride 110 mEq/L (98-107) H 03/04/17 06:18 Carbon Dioxide 25.5 mEq/L (21.0-31.0) 03/04/17 06:18 Anion Gap 7.0 (7.0-16.0) 03/04/17 06:18 BUN 7 mg/dL (7-25) 03/04/17 06:18 Creatinine 0.6 mg/dL (0.6-1.2) 03/04/17 06:18 Est GFR ( Amer) TNP 03/04/17 06:18 Est GFR (Non-Af Amer) TNP 03/04/17 06:18 BUN/Creatinine Ratio 11.7 03/04/17 06:18 Glucose 147 mg/dL (70-105) H 03/04/17 06:18 Whole Bld Lactic Acid 1.75 mmol/L (0.60-1.99) 03/01/17 01:25 Calcium 7.8 mg/dL (8.6-10.3) L 03/04/17 06:18 Total Bilirubin 0.3 mg/dL (0.3-1.0) 02/28/17 22:19 AST 27 U/L (13-39) 02/28/17 22:19 ALT 40 U/L (7-52) 02/28/17 22:19 Alkaline Phosphatase 64 U/L (34-104) 02/28/17 22:19 Ammonia 45 umol/L (16-53) 03/02/17 06:40 Troponin I 0.02 ng/mL (0.01-0.05) 02/28/17 22:19 B-Natriuretic Peptide 122.0 pg/mL (5.0-100.0) H 02/28/17 22:19 Total Protein 6.5 gm/dL (6.0-8.3) 02/28/17 22:19 Albumin 2.6 gm/dL (3.7-5.3) L 02/28/17 22:19 Globulin 3.9 gm/dL 02/28/17 22:19 Albumin/Globulin Ratio 0.7 (1.0-1.8) L 02/28/17 22:19 Vitamin B12 554 pg/mL (211-946) 03/02/17 06:25 Folic Acid 6.6 ng/mL (>3.0) 03/02/17 06:25 Urine Source CATH 03/04/17 13:30 Urine Color YELLOW 07/22/17 13:30 Urine Clarity CLEAR (CLEAR) 03/04/17 13:30 Urine pH 6.5 03/04/17 13:30 Ur Specific [place] 1.010 (1.005-1.030) 03/04/17 13:30 Urine Protein NEGATIVE mg/dL (NEGATIVE) 03/04/17 13:30 Urine Glucose (UA) NEGATIVE mg/dL (NEGATIVE) 03/04/17 13:30 Urine Ketones NEGATIVE mg/dL (NEGATIVE) 03/04/17 13:30 Urine Blood NEGATIVE (NEGATIVE) 03/04/17 13:30 Urine Nitrate NEGATIVE (NEGATIVE) 03/04/17 13:30 Urine Bilirubin NEGATIVE (NEGATIVE) 03/04/17 13:30 Urine Urobilinogen 0.2 E.U./dL (0.2 - 1.0) 03/04/17 13:30 Ur Leukocyte Esterase NEGATIVE (NEGATIVE) 03/04/17 13:30 Urine RBC 0-2 /hpf (0-5) 03/04/17 13:30 Urine WBC 0-2 /hpf (0-5) 03/04/17 13:30 Ur Epithelial Cells RARE /lpf (FEW) 03/04/17 13:30 Urine Bacteria NONE SEEN /hpf (NONE SEEN) 03/04/17 13:30 - Physical Exam Vitals and I&O: Vital Signs Temp 98.4 F 03/04/17 12:00 Pulse 78 03/04/17 12:00 Resp 16 03/04/17 12:00 BP 92/50 03/04/17 12:00 Pulse Ox 99 03/04/17 12:00 Intake & Output 03/03/17 03/04/17 03/04/17 18:59 06:59 18:59 Intake Total 1050 1470 50 Balance 1050 1470 50 Weight (lbs) 71.214 kg Intake: Intake, IV Amount 1050 1050 50 Cefepime 1 gm In Dextrose 50 50 50 5% 50 ml @ 100 mls/hr IV Q12HR [facility] Rx#:[id number] D5-0.45NS 1,000 ml @ 80 1000 1000 mls/hr IV .[id number] [facility] Rx #:[id number] Oral 420 Other: # Voids 3 # Bowel Movements 1 Active Medications: Current Medications Acetaminophen (Tylenol) 650 mg PO Q4H PRN PRN Reason: Pain Or Fever above 101 Stop: 04/30/17 00:05 Albuterol Sulfate (Albuterol 2.5mg/3ml Neb Ud) 2.5 mg HHN QIDRT [facility] Stop: 04/30/17 06:59 Last Admin: 03/04/17 11:19 Dose: 2.5 mg Aspirin (Aspirin Chewable) 81 mg PO DAILY [facility] Stop: 04/30/17 08:59 Last Admin: 03/04/17 10:14 Dose: 81 mg Cholecalciferol (Vitamin D3) 1,000 iu PO DAILY [facility] Stop: 04/30/17 08:59 Last Admin: 03/04/17 09:38 Dose: 1,000 iu Donepezil HCl (Aricept) 5 mg PO HS [facility] Stop: 04/30/17 20:59 Last Admin: 03/03/17 20:55 Dose: 5 mg Guaifenesin (Robitussin) 200 mg PO Q4HR PRN PRN Reason: Cough or Congestion Stop: 04/30/17 00:05 Heparin Sodium (Porcine) (Heparin) 5,000 units SUBQ Q12HR [facility] Stop: 04/30/17 20:59 Last Admin: 03/04/17 09:38 Dose: 5,000 units Cefepime HCl 1 gm/ Dextrose 50 mls @ 100 mls/hr IV Q12HR [facility] Stop: 04/30/17 08:59 Last Infusion: 03/04/17 10:07 Dose: Infused Dextrose/Sodium Chloride (D5-0.45ns) 1,000 mls @ 80 mls/hr IV .[id number] [facility] Stop: 04/30/17 00:14 Last Admin: 03/04/17 04:59 Dose: 80 mls/hr Ipratropium [place] (Atrovent Neb 0.5mg/2.5ml) 0.5 mg IH QIDRT [facility] Stop: 04/30/17 06:59 Last Admin: 03/04/17 11:19 Dose: 0.5 mg Magnesium Hydroxide (Milk Of Magnesia) 30 ml PO HS [facility] Stop: 04/30/17 20:59 Last Admin: 03/03/17 20:55 Dose: 30 ml Megestrol Acetate (Megace) 400 mg PO BID [facility] Stop: 04/30/17 08:59 Last Admin: 03/04/17 09:38 Dose: 400 mg Miscellaneous (Vte Chemical Prophylaxis Screen/ Admission) 1 ea MC PRN PRN PRN Reason: PROTOCOL Stop: 04/30/17 14:17 Mupirocin (Bactroban Oint) 1 appl NS BID [facility] Stop: 03/07/17 09:01 Last Admin: 03/04/17 09:38 Dose: 1 appl Ondansetron HCl (Zofran) 4 mg IV Q8H PRN PRN Reason: Nausea / Vomiting Stop: 04/30/17 00:05 General: weak, alert, thin, bilateral temporal wasting HEENT: NC/AT Neck: Supple Lungs: congested Cardiovascular: RRR, Normal S1, Normal S2, without murmur Abdomen: soft, non-tender, non-distended, positive bowel sound Extremities: excoriation, contracture Neurological: alert, muscle weakness, bedbound - Procedures Procedures: Procedures Procedure Code Date OTHER GROUP THERAPY 94.44 03/07/14 Internal Medicine Assmt/Plan - Assessment Assessment: SEVERE PROTEIN CALORIE MALNUTRITION LACTIC ACIDOSIS FAILURE TO THRIVE POOR ORAL INTAKE POSSIBLE PNA DYSPHAGIA DEMENTIA HX CVA - Plan Plan: - Plan Plan: EMPIRIC IVABX and ivf IVF FOR HYDRATION ASPIRATION PRECAUTION AM LABS MONITOR ELECTROLYTE LEVELS will check ua dw rn Nutritional Asmnt/Malnutr-PDOC - Dietary Evaluation Malnutrition Findings (Please click <Entered> for more info): Nutritional Asmnt/Malnutrition Start: 03/02/17 16: 37 Text: Status: Complete Freq: Document 03/02/17 16:37 GSUN (Rec: 03/02/17 16:49 GSUN [email or web address]) Nutritional Asmnt/Malnutrition Patient General Information Nutritional Screening Consult Diagnosis Lactic acidosis, FTT, poor PO intake, possible PNA Pertinent Medical Hx/Surgical Hx Dementia, dysphagia, depression, muscle weakness, CVA Subjective Information 86 year old female from SNF. RD consult for low Sean and calorie count. 4 day hx of poor PO intake per H&P. 03/01 pt passed swallow eval for pureed [place] thick. Spoke to nursing staff in room, pt ate <25% of breakfast and lunch today. CBW 135lb via bedscale. Mild to moderate wasting to chest and clavicles, no severe wasting noted. Pt is edentulous. RD asked several questions, pt responses were non sensical, difficult to udnerstand. Current Diet Order/ Nutrition Support Pureed, [place] thick Pertinent Medications Vitamin D3, D5-0.45ns, MOM, Brenda Rawls Pertinent Labs Reviewed. Nutritional Hx/Data Height 1.63 m Height (Calculated Centimeters) 162.6 Current Weight (lbs) 61.235 kg Weight (Calculated Kilograms) 61.2 Weight (Calculated Grams) 59929.0 [place] Body Weight 120 Weight Status Approriate GI Symptoms Usual diet at home [place] [facility]: pureed. Skin Integrity/Comment: Sean 14. Wound care 03/01: skin is fair, sacral/buttock redness. Current %PO Negligible < 25% Estimated Nutritional Goals BEE in Kcals: Using Current wt Calories/Kcals/Kg CBW 135lb/61.4kg Kcals Calculated 1535-1842kcal (25-30kcal/kg) Protein: Using Current wt Protein Calculated 61-74g (1-1.2g/kg) Fluid: ml 1335-1842ml (1ml/kcal) Nutritional Problem 1. Problem Problem Inadequate oral food beverage intake related to Etiology unknwon etiology, possibly cognition aeb Signs/Symptoms: 4 day hx poor PO intake per H& P, megace ordered, calorie count, nursing staff report < 25% of 2 meals since adm Intervention/Recommendation Comments 1. Calorie Count started 03/02 breakfast and to end 03/03 after dinner. 2. Continue with current diet order. Expected Outcomes/Goals Expected Outcomes/Goals 1. PO intake to meet at least 75% of estimated nutritional needs.
[2017-03-04] MEDS: Magnesium Hydroxide (MOM) 30 mL UDC PO SCH (22:19)
[2017-03-05] MEDS: Ipratropium Neb 0.5 mg/2.5 mL UD IH SCH ×3 (07:13→15:37)
[2017-03-05] MEDS: Albuterol Nebulizer 2.5mg/3mL HHN SCH ×3 (07:13→15:37)
[2017-03-05] MEDS: Aspirin 81mg Chewable Tab PO SCH (09:12)
[2017-03-05] MEDS: Multivitamin w/ Minerals Tab PO SCH (09:12)
--- NOTE | 2017-03-05 16:00 | Discharge Summary ---
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 UTI (lower urinary tract infection) (Acute) N39.0 dementia (Acute) Discharge Date: 03/05/17 Discharge Diagnosis: as above Laboratory Findings: Laboratory Tests 03/01/17 03/02/17 03/02/17 01:25 06:25 06:40 WBC 10.9 H D RBC 3.50 L Hgb 11.2 L Hct 33.6 L D MCV 96.1 MCH 32.0 H MCHC Differential 33.3 RDW 14.1 Plt Count 163 MPV 8.8 Neutrophils % 67.1 Lymphocytes % 21.0 Monocytes % 8.6 Eosinophils % 3.0 Basophils % 0.3 Sodium Potassium Chloride Carbon Dioxide Anion Gap BUN Creatinine Est GFR ( Amer) Est GFR (Non-Af Amer) BUN/Creatinine Ratio Glucose Whole Bld Lactic Acid 1.75 Calcium Ammonia Vitamin B12 554 Folic Acid 6.6 Urine Source Urine Color Urine Clarity Urine pH Ur Specific [place] Urine Protein Urine Glucose (UA) Urine Ketones Urine Blood Urine Nitrate Urine Bilirubin Urine Urobilinogen Ur Leukocyte Esterase Urine RBC Urine WBC Ur Epithelial Cells Urine Bacteria 03/02/17 03/02/17 03/03/17 06:40 06:40 07:00 WBC 8.2 D RBC 3.14 L Hgb 9.9 L Hct 29.7 L D MCV 94.6 MCH 31.4 H MCHC Differential 33.2 RDW 13.7 Plt Count 186 MPV 8.9 Neutrophils % 67.1 Lymphocytes % 22.8 Monocytes % 6.8 Eosinophils % 3.2 Basophils % 0.1 Sodium 140 Potassium 3.6 Chloride 114 H Carbon Dioxide 23.4 Anion Gap 6.2 L BUN 15 Creatinine 0.7 Est GFR ( Amer) TNP Est GFR (Non-Af Amer) TNP BUN/Creatinine Ratio 21.4 Glucose 115 H Whole Bld Lactic Acid Calcium 8.1 L Ammonia 45 Vitamin B12 Folic Acid Urine Source Urine Color Urine Clarity Urine pH Ur Specific [place] Urine Protein Urine Glucose (UA) Urine Ketones Urine Blood Urine Nitrate Urine Bilirubin Urine Urobilinogen Ur Leukocyte Esterase Urine RBC Urine WBC Ur Epithelial Cells Urine Bacteria 03/03/17 03/04/17 03/04/17 07:00 06:18 06:18 WBC 7.8 RBC 3.00 L Hgb 9.6 L Hct 28.3 L MCV 94.4 MCH 32.1 H MCHC Differential 34.0 RDW 14.0 Plt Count 210 MPV 9.1 Neutrophils % 63.9 Lymphocytes % 25.9 Monocytes % 5.9 Eosinophils % 3.2 Basophils % 1.1 Sodium 141 139 Potassium 3.7 3.5 Chloride 114 H 110 H Carbon Dioxide 25.3 25.5 Anion Gap 5.4 L 7.0 BUN 11 7 Creatinine 0.7 0.6 Est GFR ( Amer) TNP TNP Est GFR (Non-Af Amer) TNP TNP BUN/Creatinine Ratio 15.7 11.7 Glucose 124 H 147 H Whole Bld Lactic Acid Calcium 8.0 L 7.8 L Ammonia Vitamin B12 Folic Acid Urine Source Urine Color Urine Clarity Urine pH Ur Specific [place] Urine Protein Urine Glucose (UA) Urine Ketones Urine Blood Urine Nitrate Urine Bilirubin Urine Urobilinogen Ur Leukocyte Esterase Urine RBC Urine WBC Ur Epithelial Cells Urine Bacteria 03/04/17 13:30 WBC RBC Hgb Hct MCV MCH MCHC Differential RDW Plt Count MPV Neutrophils % Lymphocytes % Monocytes % Eosinophils % Basophils % Sodium Potassium Chloride Carbon Dioxide Anion Gap BUN Creatinine Est GFR ( Amer) Est GFR (Non-Af Amer) BUN/Creatinine Ratio Glucose Whole Bld Lactic Acid Calcium Ammonia Vitamin B12 Folic Acid Urine Source CATH Urine Color YELLOW Urine Clarity CLEAR Urine pH 6.5 Ur Specific [place] 1.010 Urine Protein NEGATIVE Urine Glucose (UA) NEGATIVE Urine Ketones NEGATIVE Urine Blood NEGATIVE Urine Nitrate NEGATIVE Urine Bilirubin NEGATIVE Urine Urobilinogen 0.2 Ur Leukocyte Esterase NEGATIVE Urine RBC 0-2 Urine WBC 0-2 Ur Epithelial Cells RARE Urine Bacteria NONE SEEN Hospital Course: 86 yo c female admitted 2 ftt and failed outpt treatment for uti, pt admitted and referred to psych and started on ivf and iv abx pt showed improvement and case dw at [facility] w [facility] Condition at Discharge: Stable Disposition: Discharge/Transfered to SNF Home Medications: Home Medication Medication Instructions Recorded Type Aspirin [Aspirin Chewable] 81 mg PO DAILY 12/24/14 History Magnesium Hydroxide [Milk of 30 ml PO HS 12/24/14 History Magnesia] Multivitamin, Minerals, and 39 1 tab PO DAILY 05/13/15 History [Multi Formula 50] Acetaminophen [Tylenol] 2 tab PO Q4H PRN 05/03/16 History Megestrol Acetate [Megace] 400 mg PO BID 05/03/16 History Cholecalciferol (Vitamin D3) 1,000 unit PO DAILY 02/28/17 History [Vitamin D3] Donepezil HCl [Donepezil HCl Odt] 5 mg PO HS 02/28/17 History Mirtazapine [Remeron*] 15 mg PO HS 02/28/17 History Acetaminophen [Tylenol] 650 mg PO Q4H PRN tab 03/05/17 Rx Albuterol Nebulizer 2.5mg/3mL 2.5 mg HHN QIDRT each 03/05/17 Rx [Albuterol Neb UD*] Levofloxacin [Levaquin] 500 mg PO DAILY tab 03/05/17 Rx Mupirocin Oint [Mupirocin*] 1 appl NS BID appl 03/05/17 Rx Inpatient Medications: Current Medications Acetaminophen (Tylenol) 650 mg PO Q4H PRN PRN Reason: Pain Or Fever above 101 Stop: 04/30/17 00:05 Albuterol Sulfate (Albuterol 2.5mg/3ml Neb Ud) 2.5 mg HHN QIDRT [facility] Stop: 04/30/17 06:59 Last Admin: 03/05/17 15:37 Dose: 2.5 mg Aspirin (Aspirin Chewable) 81 mg PO DAILY [facility] Stop: 04/30/17 08:59 Last Admin: 03/05/17 09:12 Dose: 81 mg Cholecalciferol (Vitamin D3) 1,000 iu PO DAILY [facility] Stop: 04/30/17 08:59 Last Admin: 03/05/17 09:37 Dose: 1,000 iu Donepezil HCl (Aricept) 5 mg PO HS [facility] Stop: 04/30/17 20:59 Last Admin: 03/04/17 22:19 Dose: 5 mg Guaifenesin (Robitussin) 200 mg PO Q4HR PRN PRN Reason: Cough or Congestion Stop: 04/30/17 00:05 Heparin Sodium (Porcine) (Heparin) 5,000 units SUBQ Q12HR [facility]EVAN Stop: 04/30/17 20:59 Last Admin: 03/05/17 09:12 Dose: 5,000 units Ipratropium Acton (Atrovent Neb 0.5mg/2.5ml) 0.5 mg IH QIDRT [facility] Stop: 04/30/17 06:59 Last Admin: 03/05/17 15:37 Dose: 0.5 mg Levofloxacin (Levaquin) 500 mg PO DAILY [facility] Stop: 03/09/17 08:59 Magnesium Hydroxide (Milk Of Magnesia) 30 ml PO HS [facility] Stop: 04/30/17 20:59 Last Admin: 03/04/17 22:19 Dose: 30 ml Megestrol Acetate (Megace) 400 mg PO BID [facility] Stop: 04/30/17 08:59 Last Admin: 03/05/17 09:12 Dose: 400 mg Miscellaneous (Vte Chemical Prophylaxis Screen/ Admission) 1 ea MC PRN PRN PRN Reason: PROTOCOL Stop: 04/30/17 14:17 Mupirocin (Bactroban Oint) 1 appl NS BID [facility] Stop: 03/07/17 09:01 Last Admin: 03/05/17 09:13 Dose: 1 appl Ondansetron HCl (Zofran) 4 mg IV Q8H PRN PRN Reason: Nausea / Vomiting Stop: 04/30/17 00:05 Activity: As Tolerated Discharge Diet: Regular Consulting Speciality: Neurology (pt cpm and will continue pt and ot) Instructions: Failure to Thrive, Dysphagia, Dementia
--- NOTE | 2017-03-07 00:39 | Admit Criteria Form ---
Admit Criteria Forms - Admit Criteria Diagnosis: HEMODYNAMIC INSTABILITY Clinical Indications for Inpatient Care ([facility]/check or initial the applicable condition/criteria) Ongoing inpatient care may be indicated for hemodynamic instability as indicated by 1 or more of the following(1)(2)(3)(4)(10)(16)(17)(18)(19(32)(35): [ ]I) New hypotension [ ]II) Symptomatic Tachycardia or Bradycardia unresponsive to treatment (eg analgesia, fluids [X ]III) Inadequate perfusion as indicated by 1 or more of the following: [X ]a) Lactic acidosis, with lactic acid greater than 18 mg/dL (2 mmol /L) or base excess < -5mEq/L(36) [ ]b) New abnormal capillary refill (longer than 3 seconds) [ ]c) Altered mental status that is severe or persistent [ ]d) Reduced urine output [ ]lV) Orthostatic vital sign changes that are symptomatic and unresponsive to treatment (eg, fluids) (37)(38) [ ]V) Marked hemodynamic change from baseline (eg, SBP 20 mm Hg below patient' s usual pressure) [ ]Vl) IV inotropic or vasopressor medication required(39) Extended stay beyond goal length of stay for primary condition may be needed until ALL of the following are present(1)(2)(3)(4)(10)(16)(17): [ ]a) Heart rate > 60 and < 100 beats per minute or patient is clinically stable at current rate (eg, baseline) [ ]b) SBP >100 mm Hg and <160 mm Hg or patient is clinically stable at current pressure (eg, baseline) [ ]c) DBP greater than 50 mm Hg and less than 100 mm Hg or patient is clinically stable at current pressure (eg, baseline) [ ]d) Urine output greater than 0.5 mL/kg per hour [ ]e) Room air oxygen saturation 90% or greater or at baseline [ ]f) Orthostatic vital sign changes absent, asymptomatic, at baseline, or manageable at lower level of care[B] [ ]g) Medical comorbidities manageable at lower level of care The original trinket content created by [employer] has been revised. The portions of the content which have been revised are identified through the use of italic text or in bold, and [employer] has neither reviewed nor approved the modified material. All other unmodified content is copyright [facility]. Please see references footnoted in the original [facility] edition 2017 Admit Criteria Met?: Yes
== END 2017-03-05 19:10 | DRG 871 ==
LOC: ER 21:20 → MSI 03-01 00:05
PROVIDERS: ADMIT Internal Medicine; ATTEND Internal Medicine
DX: A41.9 Sepsis, unspecified organism (principal); J18.9 Pneumonia, unspecified organism; E43 Unspecified severe protein-calorie malnutrition; E87.2 Acidosis; I69.351 Hemiplegia and hemiparesis following cerebral infarction affecting right dominant side; N39.0 Urinary tract infection, site not specified; R13.10 Dysphagia, unspecified; F03.90 Unspecified dementia, unspecified severity, without behavioral disturbance, psychotic disturbance, mood disturbance, and anxiety; F29 Unspecified psychosis not due to a substance or known physiological condition; E86.0 Dehydration; R62.7 Adult failure to thrive; Z88.2 Allergy status to sulfonamides; Z79.82 Long term (current) use of aspirin; Z68.26 Body mass index [BMI] 26.0-26.9, adult
CPT/HCPCS: 36415-UA; 70450-TC; 71010-TC; 80048-TC; 80053-TC; 81001-TC; 82140-TC; 82607-90; 82746-90; 83605; 83880-TC; 84484-TC; 85025-TC; 90779; 94640; 94760; J0692; J1644; J7613; X3401; Z7610

== ENCOUNTER 2019-02-04 16:02 | Inpatient (IN) | payer MEDICARE, OTHER ==
--- NOTE | 2019-02-04 17:02 | ED Physician Chart ---
ED Chief Complaint/HPI - Patient Information Date Seen:: 02/04/19 Time Seen:: 16:18 Chief Complaint:: Infected G-tube site. History of Present Illness:: Brought in by ambulance from nursing facility because pt's gastrostomy site has been noticed to be erythematous. No known fever. Pt appears to be comfortable. H & P are limited because of pt's h/o dementia and her lack of cooperation. Allergies:: Allergies Allergy/AdvReac Type Severity Reaction Status Date / Time Sulfa (Sulfonamide Allergy Verified 05/03/16 18:54 Antibiotics) Vitals:: Vital Signs - 8 hr 02/04/19 16:16 Temp 99.2 F HR 106 RR 18 BP 154/89 O2 Sat % 99 Historian:: Medical Records (from transferring facility.) Family MD/PCP:: Dr. Garcia LMP:: Postmenopausal. Review:: Nurse's Note Reviewed, Transfer documents Reviewed ED Review of Systems - Review of Systems General/Constitutional: Other (Pt does not cooperate for ROS.) ED Past Medical History - Past Medical History Past Medical History: Asthma/COPD, Dementia, Other (chronic anemia) Family History: Other (Pt does not cooperate to provide info on FHx.) Social History: Care Facility, Other (Pt does not cooperate to provide info on SHx.) Surgical History: PEG/GTube Psychiatricy History: Depression, Schizophrenia Medication: Reviewed Family Medical History - Family Member Father History Unknown: Yes Ethnicity: Non- Living Status: Hx Family Cancer: No Hx Family Coronary Artery Disease: Yes Hx Family Congestive Heart Failure: No Hx Family Hypertension: No Hx Family Stroke: No Hx Family Diabetes: No Hx Family Seizures: No Hx Family Dementia: Yes Hx Family AIDS: No Hx Family HIV: No Hx Family COPD: No Hx Family Hepatitis: No Hx Family Psychiatric Problems: No Hx Family Tuberculosis: No Mother History Unknown: Yes ED Physical Exam - Physical Examination General/Constitutional: Awake, Alert, No distress Other Gen/Cons comments:: Well developed mildly cachectic elderly female in NAD. Breathes comfortably. Pt is essentially nonverbal. Pt is uncooperative. Head: Atraumatic Eyes: Lids, conjuctiva normal, PERRL, EOMI Other Eyes comments:: Anicteric sclera Skin: No lymphadenopathy ENMT: External ears, nose nl, Nasal exam nl, Oropharynx nl (except pt is edentulous. Mucous membrane is mildly dry.) Neck: Nontender, Full ROM w/o pain, No JVD, No nuchal rigidity, No mass Respiratory: Nl effort/Exclusion, Clear to Auscultation, No Wheeze/Rhonchi/Rales Cardio Vascular: RRR, No murmur, gallop, rubs GI: No tenderness/rebounding/guarding, No organomegaly, Normal BS's, Nondistended, No mass/bruits Other GI comments:: Gastrostomy tube noticed in LUQ with peripheral erythema at gastrostomy site. There is trace light yellow exudate. Extremities: No edema Other Neuro/Psych comments:: Alert, responds to voice and tactile stimuli. Pt has contractures in both UE's and LE's. Spontaneous movements noticed in all 4 extremities. Pt does not cooperate for full neurological exam. ED Labs/Radiology/EKG Results - Lab Results Results: Laboratory Results - last 24 hr 02/04/19 02/04/19 02/04/19 17:40 17:40 17:40 WBC 17.2 H RBC 2.95 L Hgb 9.4 L Hct 27.5 L MCV 93.0 MCH 31.9 H MCHC Differential 34.3 RDW 13.3 Plt Count 422 H MPV 8.1 Neutrophils % 51.4 Lymphocytes % 21.6 Monocytes % 8.9 Eosinophils % 17.9 H Basophils % 0.7 PT 10.2 INR 0.98 PTT (Actin FS) 27.4 Sodium 140 Potassium 4.3 Chloride 104 Carbon Dioxide 27.7 Anion Gap 12.6 BUN 41 H Creatinine 0.7 Est GFR ( Amer) TNP Est GFR (Non-Af Amer) TNP BUN/Creatinine Ratio 58.6 Glucose 103 Whole Bld Lactic Acid Calcium 9.3 Total Bilirubin 0.2 L AST 15 ALT 15 Alkaline Phosphatase 51 Total Protein 7.7 Albumin 3.0 L Globulin 4.7 Albumin/Globulin Ratio 0.6 L 02/04/19 17:40 WBC RBC Hgb Hct MCV MCH MCHC Differential RDW Plt Count MPV Neutrophils % Lymphocytes % Monocytes % Eosinophils % Basophils % PT INR PTT (Actin FS) Sodium Potassium Chloride Carbon Dioxide Anion Gap BUN Creatinine Est GFR ( Amer) Est GFR (Non-Af Amer) BUN/Creatinine Ratio Glucose Whole Bld Lactic Acid 0.83 Calcium Total Bilirubin AST ALT Alkaline Phosphatase Total Protein Albumin Globulin Albumin/Globulin Ratio Pending labs: wound culture, blood cultures. ED Septic Shock - . Is Septic Shock (SBP<90, OR Lactate>4 mmol\L) present?: No - <6hrs of presentation: Vital Signs: Vital Signs - 8 hr 02/04/19 16:16 Temp 99.2 F HR 106 RR 18 BP 154/89 O2 Sat % 99 ED Reassessment (Disposition) - Reassessment Reassessment:: 1900 Pt remains stable. No new findings. Lab findings have been reviewed. Admitting attending physician is to be contacted. 1919 Case was discussed with Dr. Garcia with pertinent info reviewed. Pt is to be admitted to [facility] under his care. - Diagnosis Diagnosis:: Infected gastrostomy site with associated cellulitis. Chronic anemia. Dementia. Dehydration. - Patient Disposition Admitted to:: Telemetry Admitting Medical Physician:: John Garcia Time:: 19:20 Condition at Disposition:: Stable
[2019-02-04 18:04] LABS: INR 0.98 (0.5-1.4)
[2019-02-04 18:08] LABS: ALB/GLOB RATIO 0.6 (1.0-1.8); ALKALINE PHOSPHATASE 51 U/L (34-104); ANION GAP 12.6 (7.0-16.0); BILIRUBIN,TOTAL 0.2 mg/dL (0.3-1.0); BUN - UREA NITROGEN 41 mg/dL (7-25); CALCIUM SERUM 9.3 mg/dL (8.6-10.3); CARBON DIOXIDE 27.7 mEq/L (21.0-31.0); CHLORIDE 104 mEq/L (98-107); CREATININE - SERUM 0.7 mg/dL (0.6-1.2); GLUCOSE 103 mg/dL (70-105); POTASSIUM SERUM 4.3 mEq/L (3.5-5.1); SGOT 15 U/L (13-39); SGPT/ALT 15 U/L (7-52); SODIUM SERUM 140 mEq/L (136-145); TOTAL PROTEIN,SERUM 7.7 gm/dL (6.0-8.3)
[2019-02-04 18:15] LABS: HEMATOCRIT 27.5 % (41.0-60); HEMOGLOBIN 9.4 gm/dL (12-16); MEAN CORPUSCULAR HEMOGLOBIN 31.9 pg (27.0-31.0); RED BLOOD COUNT 2.95 Mil/cmm (3.80-5.20); WHITE BLOOD COUNT 17.2 Th/cmm (4.8-10.8)
[2019-02-04 18:16] LABS: MEAN CORPUSCULAR HGB CONC 34.3 pg (28.0-36.0); PLATELET COUNT 422 Th/cmm (150-400); RED CELL DISTRIBUTION WIDTH 13.3 % (11.5-20.0)
[2019-02-04] MEDS ORDERED: D5-0.45NS 1,000 ML IV ONE (19:10)
[2019-02-04 19:41] LABS: EOSINOPHIL 5 % (0-5); LYMPHOCYTE 20 % (20-50); MONOCYTE 18 % (2-10); NEUTROPHILS 57 % (40-80)
[2019-02-04 19:42] LABS: PLATELET MORPHOLOGY NORMAL (NORMAL)
[2019-02-04 19:50] LABS: % BASOPHILS 0.7 % (0.0-2.0); % EOSINOPHILS 17.9 % (0.0-5.0); % LYMPHOCYTES 21.6 % (20.0-50.0); % MONOCYTES 8.4 % (2.0-10.0); % NEUTROPHILS 51.4 % (40.0-80.0)
[2019-02-04 19:51] LABS: PLATELET ESTIMATE INCREASED PLATELETS (NORMAL)
[2019-02-04 20:12] LABS: BAND NEUTROPHILE 0 % (0-10); EOSINOPHIL 5 % (0-5); LYMPHOCYTE 20 % (20-50); MONOCYTE 18 % (2-10); NEUTROPHILS 57 % (40-80); PLATELET ESTIMATE INCREASED PLATELETS (NORMAL); PLATELET MORPHOLOGY NORMAL (NORMAL)
[2019-02-04] MEDS ORDERED: Albuterol Nebulizer 2.5mg/3mL HHN PRN (21:23)
[2019-02-04] MEDS ORDERED: Non-Formulary Item 1 EA (Hydrocodone/Acetaminophen [Hydrocodone-Acetamin 7.5-325] 1 TAB) GT PRN (21:23)
[2019-02-04] MEDS ORDERED: Magnesium Hydroxide (MOM) 30 mL UDC GT PRN (21:23)
[2019-02-04] MEDS ORDERED: guaiFENesin 200 MG/10 ML UDC GT PRN (21:23)
[2019-02-04] MEDS ORDERED: Maalox 30 mL Cup GT PRN (21:38)
--- NOTE | 2019-02-04 22:10 | History & Physical ---
ADMIT DATE: 02/04/2019 CHIEF COMPLAINT: Redness around the G-tube area and palpable mass. HISTORY OF PRESENT ILLNESS: This is an 88-year-old female with history of dementia, dysphagia with G-tube, stroke, GERD, psych disorder, admitted from nursing facility secondary to redness and palpable bump around the G-tube area. The patient was brought in the ER and noted to have elevated white count and infected G-tube and admitted for further management. PAST MEDICAL HISTORY: As mentioned in the history of present illness. PAST SURGICAL HISTORY: Status post G-tube. ALLERGIES: SULFA. MEDICATIONS: Vitamin D, albuterol, Atrovent, ____, Robitussin, lansoprazole, Imodium, ____, nitroglycerin, Zofran, zinc and vitamin C. FAMILY HISTORY: Noncontributory. SOCIAL HISTORY: The patient is a retirement patient, requiring 24-hour total care. REVIEW OF SYSTEMS: This is limited secondary to the patient's current mental state. We will try to obtain more detailed review of system at a later date by talking to family members listed in the facesheet and the daughter, Paige Campos from ____ [place], #[phone], ____ another family member at [place], number [phone]. We will try to get information from the nurse at [facility] at [phone]. PHYSICAL EXAMINATION: VITAL SIGNS: Blood pressure 124/89, respirations 18, pulse 106, temperature 99.2. GENERAL: Elderly female, appears chronically ill. NECK: Supple. No mass. LUNGS: Equal breath sounds with a few rhonchi. HEART: Regular rate and rhythm with systolic ejection murmur. ABDOMEN: Soft, globular. Positive erythema around the G-tube area. EXTREMITIES: Positive excoriation, atrophy, contractures. NEUROLOGIC: Limited. LABORATORY DATA: WBC 17, hemoglobin 9.4, platelets 122. BUN 41, creatinine 0.7, albumin 3.0. ASSESSMENT AND PLAN: G-tube, questionable mass, sepsis, leukocytosis, anemia, thrombocytosis, renal insufficiency, protein-calorie malnutrition, dementia, history of stroke, gastroesophageal reflux disorder. We will continue the patient on IV antibiotic on Maxipime as well as vanco. Follow the patient's blood culture. We will refer the patient to GI for abdominal CT. We will monitor the patient closely. JOB# [id number]
[2019-02-04] MEDS: D5-0.9%NS 1,000 ML IV SCH (22:15)
[2019-02-04 22:26] VITALS: BP 122/50
[2019-02-05 05:19] LABS: URINE SOURCE CATH
[2019-02-05 05:22] LABS: URINE BILIRUBIN NEGATIVE (NEGATIVE); URINE BLOOD SMALL (NEGATIVE); URINE GLUCOSE (UA) NEGATIVE (NEGATIVE); URINE KETONE NEGATIVE (NEGATIVE); URINE LEUKOCYTE ESTERASE LARGE (NEGATIVE); URINE MICROSCOPIC INDICATED? YES; URINE NITRATE NEGATIVE (NEGATIVE); URINE PROTEIN TRACE mg/dL (NEGATIVE); URINE UROBILINOGEN 0.2 E.U./dL (0.2 - 1.0)
[2019-02-05 06:10] LABS: URINE CLARITY HAZY (CLEAR); URINE COLOR YELLOW
[2019-02-05 06:13] LABS: URINE WBC 50-100 /hpf (0-5)
[2019-02-05 06:14] LABS: URINE BACTERIA MODERATE /hpf (NONE SEEN); URINE EPITHELIAL CELLS FEW /lpf (FEW)
[2019-02-05] MEDS ORDERED: Hydrocodone/APAP 5mg/325mg Tab PO PRN (07:53)
[2019-02-05] MEDS ORDERED: Pantoprazole 40 mg/Packet GT SCH (09:00)
--- NOTE | 2019-02-05 09:43 | Diagnostic Imaging Report ---
CT scan abdomen and pelvis without intravenous contrast HISTORY: Mass. Total DLP equals 413 CTDI equals 8.9 Axial sections were obtained from the xiphoid process down to the pubic symphysis. The liver exhibits a normal size with a homogeneous parenchyma. No focal lesions. The spleen appears normal. No focal abnormality seen within the pancreas. There is a balloontipped catheter situated within the subcutaneous tissues over the mid anterior abdomen (malpositioned gastrostomy tube). The right kidney demonstrates fullness of the right renal collecting system without ivy hydronephrosis. Small right renal cyst is seen. No focal lesions seen within the left kidney. No hydronephrosis. Atherosclerotic calcification presumably related to recent seen within the abdominal aorta. The exam of the pelvis demonstrates an abnormal segment with wall thickening along the lower descending/sigmoid colon. Detail limited due to the absence of oral/bowel contrast. Colonic diverticular seen. Inflammatory change (diverticulitis) cannot be excluded. A neoplastic etiology cannot be ruled out. Intraluminal air is seen within the urinary bladder. Extensive artifact associated deformity and surgical hardware noted about the left hip. Mildly distended stool-filled rectum. Scoliosis and severe degenerative changes throughout the spine. Partial compression involving several lumbar vertebrae particularly L1. IMPRESSION: 1. Malpositioned gastrostomy tube with an inflated balloon situated within the soft tissues over the mid anterior abdomen. 2. Abnormal changes along a segment of the lower descending/sigmoid colon. Findings may be associated with an inflammatory etiology (diverticulitis). Neoplasm cannot be excluded. 3. Extensive intraluminal air within the urinary bladder presumably related to recent catheterization 4. Severe deformity and surgical changes about the left hip
[2019-02-05] MEDS: Multivitamin w/ Minerals 15 mL UDC GT SCH (10:27)
--- NOTE | 2019-02-05 12:41 | Internal Medicine Prog Note ---
Internal Medicine Subjective - Subjective Patient seen and examined:: with staff, chart reviewed Patient is:: asleep, non-verbal, non-interactive Patient Complaints of:: congestion Per staff patient has:: no adverse event, no episodes of fall, confused Internal Medicine Objective - Results Result Diagrams: 02/04/19 17:40 02/04/19 17:40 Recent Labs: Laboratory Last Values WBC 17.2 Th/cmm (4.8-10.8) H 02/04/19 17:40 RBC 2.95 Mil/cmm (3.80-5.20) L 02/04/19 17:40 Hgb 9.4 gm/dL (12-16) L 02/04/19 17:40 Hct 27.5 % (41.0-60) L 02/04/19 17:40 MCV 93.0 fl (81-100) 02/04/19 17:40 MCH 31.9 pg (27.0-31.0) H 02/04/19 17:40 MCHC Differential 34.3 pg (28.0-36.0) 02/04/19 17:40 RDW 13.3 % (11.5-20.0) 02/04/19 17:40 Plt Count 422 Th/cmm (150-400) H 02/04/19 17:40 MPV 8.1 fl 02/04/19 17:40 Add Manual Diff YES 02/04/19 17:40 Neutrophils % 51.4 % (40.0-80.0) 02/04/19 17:40 Band Neutrophils % 0 % (0-10) 02/04/19 17:40 Lymphocytes % 21.6 % (20.0-50.0) 02/04/19 17:40 Monocytes % 8.4 % (2.0-10.0) 02/04/19 17:40 Eosinophils % 17.9 % (0.0-5.0) H 02/04/19 17:40 Basophils % 0.7 % (0.0-2.0) 02/04/19 17:40 Neutrophils (Manual) 57 % (40-80) 02/04/19 17:40 Lymphocytes 20 % (20-50) 02/04/19 17:40 Monocytes 18 % (2-10) H 02/04/19 17:40 Eosinophils 5 % (0-5) 02/04/19 17:40 Platelet Estimate INCREASED PLATELETS (NORMAL) 02/04/19 17:40 Platelet Morphology NORMAL (NORMAL) 02/04/19 17:40 RBC Morph Micro Appear NORMAL (NORMAL) 02/04/19 17:40 PT 10.2 SECONDS (9.5-11.5) 02/04/19 17:40 INR 0.98 (0.5-1.4) 02/04/19 17:40 PTT (Actin FS) 27.4 SECONDS (26.0-38.0) 02/04/19 17:40 Sodium 140 mEq/L (136-145) 02/04/19 17:40 Potassium 4.3 mEq/L (3.5-5.1) 02/04/19 17:40 Chloride 104 mEq/L (98-107) 02/04/19 17:40 Carbon Dioxide 27.7 mEq/L (21.0-31.0) 02/04/19 17:40 Anion Gap 12.6 (7.0-16.0) 02/04/19 17:40 BUN 41 mg/dL (7-25) H 02/04/19 17:40 Creatinine 0.7 mg/dL (0.6-1.2) 02/04/19 17:40 Est GFR ( Amer) TNP 02/04/19 17:40 Est GFR (Non-Af Amer) TNP 02/04/19 17:40 BUN/Creatinine Ratio 58.6 02/04/19 17:40 Glucose 103 mg/dL (70-105) 02/04/19 17:40 POC Glucose 95 MG/DL (70 - 105) 02/04/19 20:52 Whole Bld Lactic Acid 0.83 mmol/L (0.60-1.99) 02/04/19 17:40 Calcium 9.3 mg/dL (8.6-10.3) 02/04/19 17:40 Total Bilirubin 0.2 mg/dL (0.3-1.0) L 02/04/19 17:40 AST 15 U/L (13-39) 02/04/19 17:40 ALT 15 U/L (7-52) 02/04/19 17:40 Alkaline Phosphatase 51 U/L (34-104) 02/04/19 17:40 Total Protein 7.7 gm/dL (6.0-8.3) 02/04/19 17:40 Albumin 3.0 gm/dL (3.7-5.3) L 02/04/19 17:40 Globulin 4.7 gm/dL 02/04/19 17:40 Albumin/Globulin Ratio 0.6 (1.0-1.8) L 02/04/19 17:40 Urine Source CATH 02/05/19 05:00 Urine Color YELLOW 02/05/19 05:00 Urine Clarity HAZY (CLEAR) 02/05/19 05:00 Urine pH 7.0 (4.6 - 8.0) 02/05/19 05:00 Ur Specific [place] <= 1.005 (1.005-1.030) 02/05/19 05:00 Urine Protein TRACE mg/dL (NEGATIVE) 02/05/19 05:00 Urine Glucose (UA) NEGATIVE mg/dL (NEGATIVE) 02/05/19 05:00 Urine Ketones NEGATIVE mg/dL (NEGATIVE) 02/05/19 05:00 Urine Blood SMALL (NEGATIVE) H 02/05/19 05:00 Urine Nitrate NEGATIVE (NEGATIVE) 02/05/19 05:00 Urine Bilirubin NEGATIVE (NEGATIVE) 02/05/19 05:00 Urine Urobilinogen 0.2 E.U./dL (0.2 - 1.0) 02/05/19 05:00 Ur Leukocyte Esterase LARGE (NEGATIVE) H 02/05/19 05:00 Urine RBC 2-5 /hpf (0-5) 02/05/19 05:00 Urine WBC 50-100 /hpf (0-5) H 02/05/19 05:00 Ur Epithelial Cells FEW /lpf (FEW) 02/05/19 05:00 Urine Bacteria MODERATE /hpf (NONE SEEN) H 02/05/19 05:00 - Physical Exam Vitals and I&O: Vital Signs Temp 98.0 F 02/05/19 08:00 Pulse 94 02/05/19 08:04 Resp 18 02/05/19 08:04 BP 136/81 02/05/19 08:00 Pulse Ox 95 02/05/19 08:04 Intake & Output 02/04/19 02/05/19 02/05/19 18:59 06:59 18:59 Intake Total 50 Balance 50 Weight (lbs) 44.452 kg 44.452 kg Intake: Intake, IV Amount 50 Cefepime 1 gm In Dextrose 50 5% 50 ml @ 100 mls/hr IV Q12H [facility] Rx#:[id number] Other: # Voids 3 # Bowel Movements 1 Stool Characteristics Soft Brown Weight Source Estimated Estimated Active Medications: Current Medications Acetaminophen (Tylenol 650mg/20.3ml Suspension) 650 mg GT Q4H PRN PRN Reason: MILD PAIN/Fever > 101 Stop: 04/05/19 21:34 Acetaminophen/Hydrocodone Bitart ([place] 5mg/325mg) 1 tab PO Q8H PRN PRN Reason: MODERATE PAIN Stop: 04/06/19 07:52 Al Hydrox/Mg Hydrox/Simethicone (Maalox) 30 ml GT Q6H PRN PRN Reason: INDIGESTION Stop: 04/05/19 21:37 Albuterol Sulfate (Albuterol 2.5mg/3ml Neb Ud) 2.5 mg HHN Q4HR PRN PRN Reason: Shortness of Breath Stop: 04/05/19 21:22 Ascorbic Acid (Vitamin C) 500 mg GT BID STEVAN Stop: 04/05/19 21:59 Last Admin: 02/05/19 10:27 Dose: 500 mg Cholecalciferol (Vitamin D3) 1,000 iu GT DAILY STEVAN Stop: 04/06/19 08:59 Last Admin: 02/05/19 10:27 Dose: 1,000 iu Donepezil HCl (Aricept) 10 mg GT HS STEVAN Stop: 04/05/19 21:59 Guaifenesin (Robitussin) 200 mg GT Q4HR PRN PRN Reason: Cough Stop: 04/05/19 21:22 Cefepime HCl 1 gm/ Dextrose 50 mls @ 100 mls/hr IV Q12H [facility]EV[facility] Stop: 04/05/19 21:59 Last Admin: 02/05/19 10:30 Dose: 100 mls/hr Dextrose/Sodium Chloride (D5-0.9%Ns) 1,000 mls @ 80 mls/hr IV .[id number] [facility] Stop: 04/05/19 21:29 Last Admin: 02/04/19 22:15 Dose: 80 mls/hr Vancomycin HCl 1 gm/ Sodium (Chloride) 250 mls @ 165 mls/hr IV Q24H [facility] Stop: 04/06/19 08:59 Last Admin: 02/05/19 09:00 Dose: 165 mls/hr Loperamide HCl (Imodium) 4 mg GT Q4H PRN PRN Reason: Diarrhea Stop: 04/05/19 21:22 Magnesium Hydroxide (Milk Of Magnesia) 30 ml GT Q8H PRN PRN Reason: Constipation Stop: 04/05/19 21:22 Mirtazapine (Remeron) 7.5 mg GT HS STEVAN Stop: 04/05/19 21:59 Last Admin: 02/04/19 22:41 Dose: 7.5 mg Miscellaneous (Vancomycin Iv Per Pharmacy) 1 ea [facility] PRN STEVAN Stop: 04/05/19 21:29 Miscellaneous (Ppn Per Pharmacy) 1 [facility] [place] PRN PRN PRN Reason: PROTOCOL Stop: 04/06/19 12:37 Multivitamins/Minerals (Theragran M) 15 ml GT DAILY STEVAN Stop: 04/06/19 08:59 Last Admin: 02/05/19 10:27 Dose: 15 ml Nitroglycerin (Nitrostat) 0.4 mg SL Q5MIN PRN PRN Reason: Chest Pain Stop: 04/05/19 21:22 Ondansetron HCl (Zofran Odt) 4 mg PO Q8HR PRN PRN Reason: Nausea/ vomiting Stop: 04/05/19 21:22 Pantoprazole Sodium (Protonix) 40 mg GT DAILY STEVAN Stop: 04/06/19 08:59 Last Admin: 02/05/19 10:27 Dose: 40 mg Zinc Sulfate (Zinc Sulfate) 220 mg GT DAILY STEVAN Stop: 04/06/19 08:59 Last Admin: 02/05/19 10:29 Dose: 220 mg General: demented HEENT: NC/AT, PERRLA, EOMI Neck: Supple Lungs: congested, rales Cardiovascular: RRR, Normal S1, Normal S2, with murmur Abdomen: soft, globular, +GT, +GT - redness, +GT - discharge, positive bowel sound Extremities: excoriation, contracture Neurological: no change - Procedures Procedures: Procedures Procedure Code Date OTHER GROUP THERAPY 94.44 03/07/14 Internal Medicine Assmt/Plan - Assessment Assessment: ASSESSMENT AND PLAN: G-tube infection, questionable mass, sepsis, leukocytosis , anemia, thrombocytosis, renal insufficiency, protein-calorie malnutrition, dementia, history of stroke, gastroesophageal reflux disorder, uti. - Plan Plan: PLAN: . We will continue the patient on IV antibiotic on Maxipime as well as vanco. Follow the patient's blood culture. We will refer the patient to GI for abdominal CT. We will monitor the patient closely. will follow up ua and cs
[2019-02-05 14:46] LABS: ALB/GLOB RATIO 0.6 (1.0-1.8); ALBUMIN 2.8 gm/dL (3.7-5.3); ALKALINE PHOSPHATASE 48 U/L (34-104); ANION GAP 11.3 (7.0-16.0); BILIRUBIN,TOTAL 0.3 mg/dL (0.3-1.0); BUN - UREA NITROGEN 29 mg/dL (7-25); CALCIUM SERUM 8.7 mg/dL (8.6-10.3); CHLORIDE 108 mEq/L (98-107); CHOLESTEROL 69 mg/dL (<200); CREATININE - SERUM 0.7 mg/dL (0.6-1.2); GLUCOSE 140 mg/dL (70-105); MAGNESIUM 1.9 mg/dL (1.9-2.7); PHOSPHOROUS 3.9 mg/dL (2.5-5.0); POTASSIUM SERUM 4.3 mEq/L (3.5-5.1); SGOT 16 U/L (13-39); SGPT/ALT 16 U/L (7-52); SODIUM SERUM 139 mEq/L (136-145); TOTAL PROTEIN,SERUM 7.4 gm/dL (6.0-8.3); TRIGLYCERIDES 74 mg/dL (<150)
[2019-02-05] MEDS ORDERED: Amino Acids 3% / Electrolytes 1,000 ML IV SCH (15:00)
[2019-02-05] MEDS ORDERED: Diatrizoate Meglumine/Diatri 30 mL Sol PO ONE (15:19)
--- NOTE | 2019-02-05 23:33 | Consultation ---
DATE OF CONSULTATION: 02/05/2019 REQUESTING PHYSICIAN: Dr. Garcia. REASON FOR CONSULTATION: G-tube malfunction. Thank you for asking me to see this patient in consultation. HISTORY OF PRESENT ILLNESS: The patient is an 88-year-old female who presents from nursing facility with a history of dementia, dysphagia with G-tube, stroke and GERD, who was admitted for a palpable bump around the G-tube area. The patient was brought in with an elevated white count as well as infected G-tube and admitted for further management. PAST MEDICAL HISTORY: As stated above. MEDICATIONS: Have been reviewed. FAMILY HISTORY: Noncontributory for GI disease. SOCIAL HISTORY: She is a alf resident. REVIEW OF SYSTEMS: Unable to obtain given the patient's current state. PHYSICAL EXAMINATION: VITAL SIGNS: Blood pressure 124/89, respirations 18, pulse of 106, temperature 99.2. GENERAL: Generally, she is in no acute distress. HEENT: Normocephalic, atraumatic. PERRLA positive. LUNGS: Clear bilaterally. No wheezes, rales or rhonchi. HEART: Regular rate and rhythm, normal S1, S2. ABDOMEN: Soft. There is a G-tube that is likely outside of the stomach wall that is felt subcutaneously within likely infectious pocket in this area. EXTREMITIES: Show no lower extremity edema. PSYCHIATRIC: Alert and oriented x 3. NEUROLOGIC: Grossly intact. LABORATORY DATA: White count is 17,000, hemoglobin 9.4 and platelets 122,000. BUN 41, creatinine 0.7, albumin 3.0. CT scan: 1. Malpositioned G-tube with an inflated balloon situated within the soft tissue over the mid anterior abdomen. 2. Abnormal changes along the segment of the lower descending, sigmoid colon concerning for possible neoplasm and extensive intraluminal air within the urinary bladder. ASSESSMENT AND PLAN: This is an 88-year-old female with history of dementia, G-tube dependent, and cerebrovascular accident, who presents for likely sepsis from infected G-tube site. 1. G-tube cellulitis. 2. Possible subcutaneous abscess. 3. Possible diverticulitis?. 4. Dementia. 6. Cerebrovascular accident. At the bedside, I removed the old G-tube as this was likely in the subcutaneous site and placed a 20-Fij[place] replacement gastrostomy tube back into the stomach to maintain this tract. The patient will need aggressive IV antibiotics to treat the abscess; however, the patient's clinical status, labs and/or subcutaneous cellulitis does not improve, would recommend removing this G-tube. For now, I would recommend not feeding anything enterally and just recommend IV TPN and bowel rest. No recommendation for any colonoscopy or any workup for diverticulitis. At this point, I would just recommend broad-spectrum antibiotics and supportive care and management. Would recommend checking a Gastrografin study to check G-tube placement to ensure this is in the correct position; however, would not recommend feeding at this time. We will continue to follow alongside with you. The patient may very well require endoscopic G-tube placement in 1-2 weeks. After bowel rest, if the site continues to stay infected and we have to remove this G-tube altogether. Thank you for allowing us to participate in this patient's care. JOB# [id number]
[2019-02-06] MEDS: D5-0.9%NS 1,000 ML IV SCH ×2 (03:50→16:19)
[2019-02-06] MEDS: Multivitamin w/ Minerals 15 mL UDC GT SCH (08:14)
[2019-02-06 08:22] LABS: HEMOGLOBIN 9.9 gm/dL (12-16); MEAN CELL VOLUME 94.5 fl (81-100); MEAN CORPUSCULAR HEMOGLOBIN 32.1 pg (27.0-31.0); MEAN CORPUSCULAR HGB CONC 33.9 pg (28.0-36.0); PLATELET COUNT 392 Th/cmm (150-400); RED BLOOD COUNT 3.07 Mil/cmm (3.80-5.20); RED CELL DISTRIBUTION WIDTH 13.3 % (11.5-20.0); WHITE BLOOD COUNT 13.4 Th/cmm (4.8-10.8)
[2019-02-06 08:48] LABS: BAND NEUTROPHILE 1 % (0-10); NEUTROPHILS 56 % (40-80)
[2019-02-06 08:49] LABS: BASOPHIL 0 % (0-3); EOSINOPHIL 15 % (0-5); LYMPHOCYTE 18 % (20-50); MONOCYTE 10 % (2-10)
[2019-02-06 08:50] LABS: ANION GAP 13.1 (7.0-16.0); BUN - UREA NITROGEN 21 mg/dL (7-25); CALCIUM SERUM 8.7 mg/dL (8.6-10.3); CARBON DIOXIDE 22.4 mEq/L (21.0-31.0); CHLORIDE 111 mEq/L (98-107); CREATININE - SERUM 0.6 mg/dL (0.6-1.2); GLUCOSE 108 mg/dL (70-105); MAGNESIUM 1.9 mg/dL (1.9-2.7); PHOSPHOROUS 3.1 mg/dL (2.5-5.0); POTASSIUM SERUM 3.5 mEq/L (3.5-5.1); SODIUM SERUM 143 mEq/L (136-145)
[2019-02-06] MEDS ORDERED: Venelex 60gm Tube TP SCH (09:00)
--- NOTE | 2019-02-06 09:26 | Diagnostic Imaging Report ---
Upper GI (Limited) HISTORY: Gastrostomy tube placement Water-soluble contrast was instilled through patient's gastrostomy tube. The exam demonstrates opacification of the gastric lumen. IMPRESSION: 1. Confirmation of gastrostomy tube within the gastric lumen
--- NOTE | 2019-02-06 13:11 | Internal Medicine Prog Note ---
Internal Medicine Subjective - Subjective Patient seen and examined:: with staff, chart reviewed Patient is:: asleep, non-verbal, non-interactive Patient Complaints of:: congestion Per staff patient has:: no adverse event, no episodes of fall, confused Internal Medicine Objective - Results Result Diagrams: 02/06/19 08:00 02/06/19 08:00 Recent Labs: Laboratory Last Values WBC 13.4 Th/cmm (4.8-10.8) H 02/06/19 08:00 RBC 3.07 Mil/cmm (3.80-5.20) L 02/06/19 08:00 Hgb 9.9 gm/dL (12-16) L 02/06/19 08:00 Hct 29.0 % (41.0-60) L 02/06/19 08:00 MCV 94.5 fl (81-100) 02/06/19 08:00 MCH 32.1 pg (27.0-31.0) H 02/06/19 08:00 MCHC Differential 33.9 pg (28.0-36.0) 02/06/19 08:00 RDW 13.3 % (11.5-20.0) 02/06/19 08:00 Plt Count 392 Th/cmm (150-400) 02/06/19 08:00 MPV 7.7 fl 02/06/19 08:00 Add Manual Diff YES 02/06/19 08:00 Neutrophils % 51.4 % (40.0-80.0) 02/04/19 17:40 Band Neutrophils % 1 % (0-10) 02/06/19 08:00 Lymphocytes % 21.6 % (20.0-50.0) 02/04/19 17:40 Monocytes % 8.4 % (2.0-10.0) 02/04/19 17:40 Eosinophils % 17.9 % (0.0-5.0) H 02/04/19 17:40 Basophils % 0.7 % (0.0-2.0) 02/04/19 17:40 Neutrophils (Manual) 56 % (40-80) 02/06/19 08:00 Lymphocytes 18 % (20-50) L 02/06/19 08:00 Monocytes 10 % (2-10) 02/06/19 08:00 Eosinophils 15 % (0-5) H 02/06/19 08:00 Basophils 0 % (0-3) 02/06/19 08:00 Platelet Estimate INCREASED PLATELETS (NORMAL) 02/04/19 17:40 Platelet Morphology NORMAL (NORMAL) 02/04/19 17:40 RBC Morph Micro Appear NORMAL (NORMAL) 02/04/19 17:40 PT 10.2 SECONDS (9.5-11.5) 02/04/19 17:40 INR 0.98 (0.5-1.4) 02/04/19 17:40 PTT (Actin FS) 27.4 SECONDS (26.0-38.0) 02/04/19 17:40 Sodium 143 mEq/L (136-145) 02/06/19 08:00 Potassium 3.5 mEq/L (3.5-5.1) 02/06/19 08:00 Chloride 111 mEq/L (98-107) H 02/06/19 08:00 Carbon Dioxide 22.4 mEq/L (21.0-31.0) 02/06/19 08:00 Anion Gap 13.1 (7.0-16.0) 02/06/19 08:00 BUN 21 mg/dL (7-25) 02/06/19 08:00 Creatinine 0.6 mg/dL (0.6-1.2) 02/06/19 08:00 Est GFR ( Amer) TNP 02/06/19 08:00 Est GFR (Non-Af Amer) TNP 02/06/19 08:00 BUN/Creatinine Ratio 35.0 02/06/19 08:00 Glucose 108 mg/dL (70-105) H 02/06/19 08:00 POC Glucose 95 MG/DL (70 - 105) 02/04/19 20:52 Whole Bld Lactic Acid 0.83 mmol/L (0.60-1.99) 02/04/19 17:40 Calcium 8.7 mg/dL (8.6-10.3) 02/06/19 08:00 Phosphorus 3.1 mg/dL (2.5-5.0) 02/06/19 08:00 Magnesium 1.9 mg/dL (1.9-2.7) 02/06/19 08:00 Total Bilirubin 0.3 mg/dL (0.3-1.0) 02/05/19 14:26 AST 16 U/L (13-39) 02/05/19 14:26 ALT 16 U/L (7-52) 02/05/19 14:26 Alkaline Phosphatase 48 U/L (34-104) 02/05/19 14:26 Total Protein 7.4 gm/dL (6.0-8.3) 02/05/19 14:26 Albumin 2.8 gm/dL (3.7-5.3) L 02/05/19 14:26 Globulin 4.6 gm/dL 02/05/19 14:26 Albumin/Globulin Ratio 0.6 (1.0-1.8) L 02/05/19 14:26 Triglycerides 74 mg/dL (<150) 02/05/19 14:26 Cholesterol 69 mg/dL (<200) 02/05/19 14:26 Urine Source CATH 02/05/19 05:00 Urine Color YELLOW 02/05/19 05:00 Urine Clarity HAZY (CLEAR) 02/05/19 05:00 Urine pH 7.0 (4.6 - 8.0) 02/05/19 05:00 Ur Specific [place] <= 1.005 (1.005-1.030) 02/05/19 05:00 Urine Protein TRACE mg/dL (NEGATIVE) 02/05/19 05:00 Urine Glucose (UA) NEGATIVE mg/dL (NEGATIVE) 02/05/19 05:00 Urine Ketones NEGATIVE mg/dL (NEGATIVE) 02/05/19 05:00 Urine Blood SMALL (NEGATIVE) H 02/05/19 05:00 Urine Nitrate NEGATIVE (NEGATIVE) 02/05/19 05:00 Urine Bilirubin NEGATIVE (NEGATIVE) 02/05/19 05:00 Urine Urobilinogen 0.2 E.U./dL (0.2 - 1.0) 02/05/19 05:00 Ur Leukocyte Esterase LARGE (NEGATIVE) H 02/05/19 05:00 Urine RBC 2-5 /hpf (0-5) 02/05/19 05:00 Urine WBC 50-100 /hpf (0-5) H 02/05/19 05:00 Ur Epithelial Cells FEW /lpf (FEW) 02/05/19 05:00 Urine Bacteria MODERATE /hpf (NONE SEEN) H 02/05/19 05:00 Vancomycin Trough 13.3 ug/mL (5-10) H 02/06/19 08:00 - Physical Exam Vitals and I&O: Vital Signs Temp 97.3 F 02/06/19 12:00 Pulse 91 02/06/19 12:00 Resp 18 02/06/19 12:00 BP 109/54 02/06/19 12:00 Pulse Ox 100 02/06/19 12:00 Intake & Output 02/05/19 02/06/19 02/06/19 18:59 06:59 18:59 Intake Total 1660 50 Output Total 3 Balance 1660 47 Weight (lbs) 44.452 kg 44.452 kg Intake: Intake, IV Amount 1300 50 Cefepime 1 gm In Dextrose 50 50 5% 50 ml @ 100 mls/hr IV Q12H [facility] Rx#:[id number] D5-0.9%Ns 1,000 ml @ 80 1000 mls/hr IV .[id number] [facility] Rx #:[id number] Vancomycin HCl 1 gm In 250 Sodium Chloride 0.9% 250 ml @ 165 mls/hr IV Q24H [facility] Rx#:[id number] Tube Feeding 60 Other 300 Output: Urine 3 Other: # Voids 3 # Bowel Movements 1 1 Stool Characteristics Soft Soft Soft Brown Brown Brown Weight Source Bedscale Bedscale Active Medications: Current Medications Acetaminophen (Tylenol 650mg/20.3ml Suspension) 650 mg GT Q4H PRN PRN Reason: MILD PAIN/Fever > 101 Stop: 04/05/19 21:34 Acetaminophen/Hydrocodone Bitart ([place] 5mg/325mg) 1 tab PO Q8H PRN PRN Reason: MODERATE PAIN Stop: 04/06/19 07:52 Al Hydrox/Mg Hydrox/Simethicone (Maalox) 30 ml GT Q6H PRN PRN Reason: INDIGESTION Stop: 04/05/19 21:37 Albuterol Sulfate (Albuterol 2.5mg/3ml Neb Ud) 2.5 mg HHN Q4HR PRN PRN Reason: Shortness of Breath Stop: 04/05/19 21:22 Ascorbic Acid (Vitamin C) 500 mg GT BID [facility] Stop: 04/05/19 21:59 Last Admin: 02/06/19 08:14 Dose: Not Given [place] Oil/[place] Balsam/Trypsin (Venelex) 1 appl TP DAILY [facility] Stop: 04/07/19 08:59 Last Admin: 02/06/19 08:23 Dose: 1 appl Cholecalciferol (Vitamin D3) 1,000 iu GT DAILY [facility] Stop: 04/06/19 08:59 Last Admin: 02/06/19 08:14 Dose: Not Given Donepezil HCl (Aricept) 10 mg GT HS [facility] Stop: 04/05/19 21:59 Last Admin: 02/05/19 22:11 Dose: 10 mg Guaifenesin (Robitussin) 200 mg GT Q4HR PRN PRN Reason: Cough Stop: 04/05/19 21:22 Hydrocortisone (Hydrocortisone 1%) 1 appl TP BID [facility] Stop: 04/07/19 08:59 Last Admin: 02/06/19 08:32 Dose: 1 appl Cefepime HCl 1 gm/ Dextrose 50 mls @ 100 mls/hr IV Q12H [facility] Stop: 04/05/19 21:59 Last Admin: 02/06/19 10:01 Dose: 100 mls/hr Dextrose/Sodium Chloride (D5-0.9%Ns) 1,000 mls @ 80 mls/hr IV .[id number] [facility] Stop: 04/05/19 21:29 Last Admin: 02/06/19 03:50 Dose: 80 mls/hr Vancomycin HCl 1 gm/ Sodium (Chloride) 250 mls @ 165 mls/hr IV Q24H [facility] Stop: 04/06/19 08:59 Last Admin: 02/06/19 08:23 Dose: 165 mls/hr Loperamide HCl (Imodium) 4 mg GT Q4H PRN PRN Reason: Diarrhea Stop: 04/05/19 21:22 Magnesium Hydroxide (Milk Of Magnesia) 30 ml GT Q8H PRN PRN Reason: Constipation Stop: 04/05/19 21:22 Mirtazapine (Remeron) 7.5 mg GT HS [facility] Stop: 04/05/19 21:59 Last Admin: 02/05/19 22:10 Dose: 7.5 mg Miscellaneous (Vancomycin Iv Per Pharmacy) 1 ea MC PRN [facility] Stop: 04/05/19 21:29 Miscellaneous (Ppn Per Pharmacy) 1 ea MC PRN PRN PRN Reason: PROTOCOL Stop: 04/06/19 12:37 Multivitamins/Minerals (Theragran M) 15 ml GT DAILY [facility] Stop: 04/06/19 08:59 Last Admin: 02/06/19 08:14 Dose: Not Given Nitroglycerin (Nitrostat) 0.4 mg SL Q5MIN PRN PRN Reason: Chest Pain Stop: 04/05/19 21:22 Ondansetron HCl (Zofran Odt) 4 mg PO Q8HR PRN PRN Reason: Nausea/ vomiting Stop: 04/05/19 21:22 Pantoprazole Sodium (Protonix) 40 mg IVP DAILY [facility] Stop: 04/07/19 08:59 Last Admin: 02/06/19 09:33 Dose: 40 mg Zinc Sulfate (Zinc Sulfate) 220 mg GT DAILY [facility] Stop: 04/06/19 08:59 Last Admin: 02/06/19 08:15 Dose: Not Given General: demented HEENT: NC/AT, PERRLA, EOMI Neck: Supple Lungs: congested, rales Cardiovascular: RRR, Normal S1, Normal S2, with murmur Abdomen: soft, globular, +GT, +GT - redness, +GT - discharge, positive bowel sound Extremities: excoriation, contracture Neurological: no change - Procedures Procedures: Procedures Procedure Code Date OTHER GROUP THERAPY 94.44 03/07/14 Internal Medicine Assmt/Plan - Assessment Assessment: ASSESSMENT AND PLAN: G-tube infection, questionable mass, sepsis, leukocytosis , anemia, thrombocytosis, renal insufficiency, protein-calorie malnutrition, dementia, history of stroke, gastroesophageal reflux disorder, uti. - Plan Plan: PLAN: . We will continue the patient on IV antibiotic on Maxipime as well as vanco. Follow the patient's blood culture. We will refer the patient to GI for abdominal CT. We will monitor the patient closely. will follow up ua and cs Nutritional Asmnt/Malnutr-PDOC - Dietary Evaluation Malnutrition Findings (Please click <Entered> for more info): Nutritional Asmnt/Malnutrition Start: 02/05/19 15: 34 Text: Status: Complete Freq: Protocol: Document 02/05/19 15:34 WANDA (Rec: 02/05/19 15:40 WANDA [email or web address]) Nutritional Asmnt/Malnutrition Patient General Information Nutritional Screening High Risk Diagnosis INFECTED G-TUBE SITE Pertinent Medical Hx/Surgical Hx DEMENTIA, DYSPHAGIA WITH G- TUBE, STROKE, GERD, PSYCH DISORDER Subjective Information IA HR, CONSULT: LILI Zhou PT IS A 88 YEAR OLD FEMALE ADMITTED FROM [facility] D/T REDNESS AROUND G-TUBE AREA AND PALPABLE MASS. HT: 54 WT: 98 (44.55 KG) BMI: 16.82 (UNDERWEIGHT) GI: WNL, ACTIVE, SOFT BM: 02/05 X1 I/O: 50/NOT NOTED SKIN: PINK, WARN, DRY, LOOSE, REDNESS TO LANIE UPPER EXTREMITIES, REDNESS AROUND G- TUBE SITE WOUNDS: DECUBITUS ULCER, STAGE IV ON COCCYX (4CM X 2 CM X 1. 5CM) LILI: 11 DIET ORDER: NPO ESTIMATED ENERGY NEEDS: ( GERIATRIC) 0798-6606 KCALS (28-33 KCALS/ KG) 53-67 G PRO (1.2-1.5 G/KG) 7466-7499 ML FLUIDS (30-40 ML/ KG) PT IS CURRENTLY NPO STATUS D/T INFECTED G-TUBE SITE. ONCE G- TUBE FEEDING CAN BE RESUMED, CONSIDER: JEVITY 1.2 @ 60ML/HR X 20 HOURS TO PROVIDE 1440 KCALS AND 67 G PRO TO MEET 100% NUTRITIONAL NEEDS. PROVIDES 968 ML FREE WATER. MEDICATIONS: MAALOX (PRN), ALBUTEROL (PRN), VIT C, VIT D3 , D5-0.9% Ns, IMODIUM (PRN), MOM (PRN), THEREGRAN M, NITROSTAT (PRN), ZOFRAN (PRN), PROTONIX, ZINC SULFATE, VANCOMYCIN HCL 1GM IN NACL @ 165ML/HR Current Diet Order/ Nutrition Support NPO Pertinent Medications MAALOX (PRN), ALBUTEROL (PRN), VIT C, VIT D3, D5-0.9% Ns, IMODIUM (PRN), MOM (PRN), THEREGRAN M, NITROSTAT (PRN), ZOFRAN (PRN), PROTONIX, ZINC SULFATE, VANCOMYCIN HCL 1GM IN NACL @165ML/HR Pertinent Labs 02/04: HGB/HCT 9.4/27.5, BUN/CR 41/0.7, T BILI 0.2, ALB 3.0 Nutritional Hx/Data Height 1.63 m Height (Calculated Centimeters) 162.6 Current Weight (lbs) 44.452 kg Weight (Calculated Kilograms) 44.5 Weight (Calculated Grams) 72008.1 [place] Body Weight 120 % [place] Body Weight 82 Body Mass Index (BMI) 16.8 Weight Status Underweight GI Symptoms Last BM 02/05 X1 Skin Integrity/Comment: PINK, WARN, DRY, LOOSE, REDNESS TO LANIE UPPER EXTREMITIES, REDNESS AROUND G- TUBE SITE WOUNDS: DECUBITUS ULCER, STAGE IV ON COCCYX (4CM X 2 CM X 1. 5CM) Current %PO Negligible < 25% Estimated Nutritional Goals BEE in Kcals: Using Current wt Calories/Kcals/Kg 28-33 Kcals Calculated 2272-7403 Protein: Using Current wt Protein g/k.2-1.5 Protein Calculated 53-67 Fluid: ml 5955-5344 Nutritional Problem 1. Problem Problem INADEQUATE ENERGY AND PROTEIN INTAKE Etiology R/T G-TUBE INFECTION Signs/Symptoms: AEB NPO STATUS Malnutrition Related to Morbid Obesity Malnutrition related to morbid obesity No Intervention/Recommendation Comments 1.CONTINUE NPO STATUS MEDICALLY APPROPRIATE. ONCE G- TUBE FEEDING CAN BE RESUMED, CONSIDER: JEVITY 1.2 @ 60ML/HR X 20 HOURS TO PROVIDE 1440 KCALS AND 67 G PRO TO MEET 100% NUTRITIONAL NEEDS. PROVIDES 968 ML FREE WATER. Expected Outcomes/Goals Expected Outcomes/Goals 1. MONITOR NPO STATUS 2. MONITOR WT, NUTRITION RELATED LABS, AND SKIN INTEGRITY TO TREND WNL 3. F/U HIGH RISK IN 1-2 DAYS, 02/06-02/07
--- NOTE | 2019-02-06 14:12 | GI Progress Note ---
Subjective - Review of Systems Service Date: 02/06/19 Events since last encounter: no events, pt G tube is in the stomach; no fevers GI OBJECTIVE - Results Result Diagrams: 02/06/19 08:00 02/06/19 08:00 Recent Labs: Laboratory Last Values WBC 13.4 Th/cmm (4.8-10.8) H 02/06/19 08:00 RBC 3.07 Mil/cmm (3.80-5.20) L 02/06/19 08:00 Hgb 9.9 gm/dL (12-16) L 02/06/19 08:00 Hct 29.0 % (41.0-60) L 02/06/19 08:00 MCV 94.5 fl (81-100) 02/06/19 08:00 MCH 32.1 pg (27.0-31.0) H 02/06/19 08:00 MCHC Differential 33.9 pg (28.0-36.0) 02/06/19 08:00 RDW 13.3 % (11.5-20.0) 02/06/19 08:00 Plt Count 392 Th/cmm (150-400) 02/06/19 08:00 MPV 7.7 fl 02/06/19 08:00 Add Manual Diff YES 02/06/19 08:00 Neutrophils % 51.4 % (40.0-80.0) 02/04/19 17:40 Band Neutrophils % 1 % (0-10) 02/06/19 08:00 Lymphocytes % 21.6 % (20.0-50.0) 02/04/19 17:40 Monocytes % 8.4 % (2.0-10.0) 02/04/19 17:40 Eosinophils % 17.9 % (0.0-5.0) H 02/04/19 17:40 Basophils % 0.7 % (0.0-2.0) 02/04/19 17:40 Neutrophils (Manual) 56 % (40-80) 02/06/19 08:00 Lymphocytes 18 % (20-50) L 02/06/19 08:00 Monocytes 10 % (2-10) 02/06/19 08:00 Eosinophils 15 % (0-5) H 02/06/19 08:00 Basophils 0 % (0-3) 02/06/19 08:00 Platelet Estimate INCREASED PLATELETS (NORMAL) 02/04/19 17:40 Platelet Morphology NORMAL (NORMAL) 02/04/19 17:40 RBC Morph Micro Appear NORMAL (NORMAL) 02/04/19 17:40 PT 10.2 SECONDS (9.5-11.5) 02/04/19 17:40 INR 0.98 (0.5-1.4) 02/04/19 17:40 PTT (Actin FS) 27.4 SECONDS (26.0-38.0) 02/04/19 17:40 Sodium 143 mEq/L (136-145) 02/06/19 08:00 Potassium 3.5 mEq/L (3.5-5.1) 02/06/19 08:00 Chloride 111 mEq/L (98-107) H 02/06/19 08:00 Carbon Dioxide 22.4 mEq/L (21.0-31.0) 02/06/19 08:00 Anion Gap 13.1 (7.0-16.0) 02/06/19 08:00 BUN 21 mg/dL (7-25) 02/06/19 08:00 Creatinine 0.6 mg/dL (0.6-1.2) 02/06/19 08:00 Est GFR ( Amer) TNP 02/06/19 08:00 Est GFR (Non-Af Amer) TNP 02/06/19 08:00 BUN/Creatinine Ratio 35.0 02/06/19 08:00 Glucose 108 mg/dL (70-105) H 02/06/19 08:00 POC Glucose 95 MG/DL (70 - 105) 02/04/19 20:52 Whole Bld Lactic Acid 0.83 mmol/L (0.60-1.99) 02/04/19 17:40 Calcium 8.7 mg/dL (8.6-10.3) 02/06/19 08:00 Phosphorus 3.1 mg/dL (2.5-5.0) 02/06/19 08:00 Magnesium 1.9 mg/dL (1.9-2.7) 02/06/19 08:00 Total Bilirubin 0.3 mg/dL (0.3-1.0) 02/05/19 14:26 AST 16 U/L (13-39) 02/05/19 14:26 ALT 16 U/L (7-52) 02/05/19 14:26 Alkaline Phosphatase 48 U/L (34-104) 02/05/19 14:26 Total Protein 7.4 gm/dL (6.0-8.3) 02/05/19 14:26 Albumin 2.8 gm/dL (3.7-5.3) L 02/05/19 14:26 Globulin 4.6 gm/dL 02/05/19 14:26 Albumin/Globulin Ratio 0.6 (1.0-1.8) L 02/05/19 14:26 Triglycerides 74 mg/dL (<150) 02/05/19 14:26 Cholesterol 69 mg/dL (<200) 02/05/19 14:26 Urine Source CATH 02/05/19 05:00 Urine Color YELLOW 02/05/19 05:00 Urine Clarity HAZY (CLEAR) 02/05/19 05:00 Urine pH 7.0 (4.6 - 8.0) 02/05/19 05:00 Ur Specific [place] <= 1.005 (1.005-1.030) 02/05/19 05:00 Urine Protein TRACE mg/dL (NEGATIVE) 02/05/19 05:00 Urine Glucose (UA) NEGATIVE mg/dL (NEGATIVE) 02/05/19 05:00 Urine Ketones NEGATIVE mg/dL (NEGATIVE) 02/05/19 05:00 Urine Blood SMALL (NEGATIVE) H 02/05/19 05:00 Urine Nitrate NEGATIVE (NEGATIVE) 02/05/19 05:00 Urine Bilirubin NEGATIVE (NEGATIVE) 02/05/19 05:00 Urine Urobilinogen 0.2 E.U./dL (0.2 - 1.0) 02/05/19 05:00 Ur Leukocyte Esterase LARGE (NEGATIVE) H 02/05/19 05:00 Urine RBC 2-5 /hpf (0-5) 02/05/19 05:00 Urine WBC 50-100 /hpf (0-5) H 02/05/19 05:00 Ur Epithelial Cells FEW /lpf (FEW) 02/05/19 05:00 Urine Bacteria MODERATE /hpf (NONE SEEN) H 02/05/19 05:00 Vancomycin Trough 13.3 ug/mL (5-10) H 02/06/19 08:00 - Physical Exam Vitals and I&O: Vital Signs Temp 97.3 F 02/06/19 12:00 Pulse 91 02/06/19 12:00 Resp 18 02/06/19 12:00 BP 109/54 02/06/19 12:00 Pulse Ox 100 02/06/19 12:00 Intake & Output 02/05/19 02/06/19 02/06/19 18:59 06:59 18:59 Intake Total 1660 50 Output Total 3 Balance 1660 47 Weight (lbs) 44.452 kg 44.452 kg Intake: Intake, IV Amount 1300 50 Cefepime 1 gm In Dextrose 50 50 5% 50 ml @ 100 mls/hr IV Q12H [facility] Rx#:[id number] D5-0.9%Ns 1,000 ml @ 80 1000 mls/hr IV .[id number] [facility] Rx #:[id number] Vancomycin HCl 1 gm In 250 Sodium Chloride 0.9% 250 ml @ 165 mls/hr IV Q24H [facility] Rx#:[id number] Tube Feeding 60 Other 300 Output: Urine 3 Other: # Voids 3 # Bowel Movements 1 1 Stool Characteristics Soft Soft Soft Brown Brown Brown Weight Source Bedscale Bedscale Active Medications: Current Medications Acetaminophen (Tylenol 650mg/20.3ml Suspension) 650 mg GT Q4H PRN PRN Reason: MILD PAIN/Fever > 101 Stop: 04/05/19 21:34 Acetaminophen/Hydrocodone Bitart ([place] 5mg/325mg) 1 tab PO Q8H PRN PRN Reason: MODERATE PAIN Stop: 04/06/19 07:52 Al Hydrox/Mg Hydrox/Simethicone (Maalox) 30 ml GT Q6H PRN PRN Reason: INDIGESTION Stop: 04/05/19 21:37 Albuterol Sulfate (Albuterol 2.5mg/3ml Neb Ud) 2.5 mg HHN Q4HR PRN PRN Reason: Shortness of Breath Stop: 04/05/19 21:22 Ascorbic Acid (Vitamin C) 500 mg GT BID [facility] Stop: 04/05/19 21:59 Last Admin: 02/06/19 08:14 Dose: Not Given [place] Oil/[place] Balsam/Trypsin (Venelex) 1 appl TP DAILY [facility] Stop: 04/07/19 08:59 Last Admin: 02/06/19 08:23 Dose: 1 appl Cholecalciferol (Vitamin D3) 1,000 iu GT DAILY [facility] Stop: 04/06/19 08:59 Last Admin: 02/06/19 08:14 Dose: Not Given Donepezil HCl (Aricept) 10 mg GT HS [facility] Stop: 04/05/19 21:59 Last Admin: 02/05/19 22:11 Dose: 10 mg Guaifenesin (Robitussin) 200 mg GT Q4HR PRN PRN Reason: Cough Stop: 04/05/19 21:22 Hydrocortisone (Hydrocortisone 1%) 1 appl TP BID [facility] Stop: 04/07/19 08:59 Last Admin: 02/06/19 08:32 Dose: 1 appl Cefepime HCl 1 gm/ Dextrose 50 mls @ 100 mls/hr IV Q12H [facility] Stop: 04/05/19 21:59 Last Admin: 02/06/19 10:01 Dose: 100 mls/hr Dextrose/Sodium Chloride (D5-0.9%Ns) 1,000 mls @ 80 mls/hr IV .[id number] [facility] Stop: 04/05/19 21:29 Last Admin: 02/06/19 03:50 Dose: 80 mls/hr Vancomycin HCl 1 gm/ Sodium (Chloride) 250 mls @ 165 mls/hr IV Q24H [facility] Stop: 04/06/19 08:59 Last Admin: 02/06/19 08:23 Dose: 165 mls/hr Loperamide HCl (Imodium) 4 mg GT Q4H PRN PRN Reason: Diarrhea Stop: 04/05/19 21:22 Magnesium Hydroxide (Milk Of Magnesia) 30 ml GT Q8H PRN PRN Reason: Constipation Stop: 04/05/19 21:22 Mirtazapine (Remeron) 7.5 mg GT HS [facility] Stop: 04/05/19 21:59 Last Admin: 02/05/19 22:10 Dose: 7.5 mg Miscellaneous (Vancomycin Iv Per Pharmacy) 1 ea MC PRN [facility] Stop: 04/05/19 21:29 Miscellaneous (Ppn Per Pharmacy) 1 ea MC PRN PRN PRN Reason: PROTOCOL Stop: 04/06/19 12:37 Multivitamins/Minerals (Theragran M) 15 ml GT DAILY [facility] Stop: 04/06/19 08:59 Last Admin: 02/06/19 08:14 Dose: Not Given Mupirocin (Bactroban Oint) 1 appl NS BID [facility] Stop: 02/11/19 09:01 Nitroglycerin (Nitrostat) 0.4 mg SL Q5MIN PRN PRN Reason: Chest Pain Stop: 04/05/19 21:22 Ondansetron HCl (Zofran Odt) 4 mg PO Q8HR PRN PRN Reason: Nausea/ vomiting Stop: 04/05/19 21:22 Pantoprazole Sodium (Protonix) 40 mg IVP DAILY [facility] Stop: 04/07/19 08:59 Last Admin: 02/06/19 09:33 Dose: 40 mg Zinc Sulfate (Zinc Sulfate) 220 mg GT DAILY [facility] Stop: 04/06/19 08:59 Last Admin: 02/06/19 08:15 Dose: Not Given General: Cooperative HEENT: Atraumatic, PERRLA, EOMI Neck: Supple, JVD, Thyromegaly Cardiovascular: Regular rate, Normal S1, Normal S2 Lungs: Clear to auscultation - Procedures Procedures: Procedures Procedure Code Date OTHER GROUP THERAPY 94.44 03/07/14 Assessment/Plan - Assessment Assessment: 1. G tube malfunction 2. Sepsis -Her abdomen is soft, periG tube area appears to be relatively free of celulitis and no G tube leakage -Recommend resuming G tube feeds -Would recommend coverage with IV antibiotics in the event she has a subcutaneous abscess where previous G tube was malpositioned
[2019-02-07] MEDS: D5-0.9%NS 1,000 ML IV SCH ×3 (05:19→22:00)
[2019-02-07 05:20] LABS: % BASOPHILS 0.4 % (0.0-2.0); % EOSINOPHILS 24.3 % (0.0-5.0); % LYMPHOCYTES 23.7 % (20.0-50.0); % MONOCYTES 9.6 % (2.0-10.0); EOSINOPHILE ABSOLUTE 2.6 Th/cmm (0.1-0.4); HEMATOCRIT 24.3 % (41.0-60); LYMPHOCYTE ABSOLUTE 2.6 Th/cmm (1.5-3.0); MEAN CELL VOLUME 94.4 fl (81-100); MEAN CORPUSCULAR HEMOGLOBIN 31.2 pg (27.0-31.0); MEAN CORPUSCULAR HGB CONC 33.1 pg (28.0-36.0); NEUTROPHILE ABSOLUTE 4.6 Th/cmm (1.8-8.0); PLATELET COUNT 363 Th/cmm (150-400); RED BLOOD COUNT 2.57 Mil/cmm (3.80-5.20); RED CELL DISTRIBUTION WIDTH 13.4 % (11.5-20.0); WHITE BLOOD COUNT 10.8 Th/cmm (4.8-10.8)
[2019-02-07 06:05] LABS: EOSINOPHIL 14 % (0-5); LYMPHOCYTE 44 % (20-50); MONOCYTE 6 % (2-10); NEUTROPHILS 36 % (40-80)
[2019-02-07 06:06] LABS: ANION GAP 11.1 (7.0-16.0); BUN - UREA NITROGEN 17 mg/dL (7-25); CALCIUM SERUM 8.1 mg/dL (8.6-10.3); CARBON DIOXIDE 20.5 mEq/L (21.0-31.0); CHLORIDE 113 mEq/L (98-107); CREATININE - SERUM 0.6 mg/dL (0.6-1.2); GLUCOSE 116 mg/dL (70-105); MAGNESIUM 1.8 mg/dL (1.9-2.7); POTASSIUM SERUM 3.6 mEq/L (3.5-5.1); SODIUM SERUM 141 mEq/L (136-145)
[2019-02-07] MEDS: Venelex 60gm Tube TP SCH (10:14)
[2019-02-07] MEDS: Multivitamin w/ Minerals 15 mL UDC GT SCH (10:14)
--- NOTE | 2019-02-07 12:37 | Internal Medicine Prog Note ---
Internal Medicine Subjective - Subjective Patient seen and examined:: with staff, chart reviewed Patient is:: asleep, non-verbal, non-interactive Patient Complaints of:: congestion Per staff patient has:: no adverse event, no episodes of fall, confused Internal Medicine Objective - Results Result Diagrams: 02/07/19 05:15 02/07/19 05:15 Recent Labs: Laboratory Last Values WBC 10.8 Th/cmm (4.8-10.8) 02/07/19 05:15 RBC 2.57 Mil/cmm (3.80-5.20) L 02/07/19 05:15 Hgb 8.0 gm/dL (12-16) L 02/07/19 05:15 Hct 24.3 % (41.0-60) L 02/07/19 05:15 MCV 94.4 fl (81-100) 02/07/19 05:15 MCH 31.2 pg (27.0-31.0) H 02/07/19 05:15 MCHC Differential 33.1 pg (28.0-36.0) 02/07/19 05:15 RDW 13.4 % (11.5-20.0) 02/07/19 05:15 Plt Count 363 Th/cmm (150-400) 02/07/19 05:15 MPV 7.3 fl 02/07/19 05:15 Add Manual Diff YES 02/06/19 08:00 Neutrophils % 42.0 % (40.0-80.0) 02/07/19 05:15 Band Neutrophils % 1 % (0-10) 02/06/19 08:00 Lymphocytes % 23.7 % (20.0-50.0) 02/07/19 05:15 Monocytes % 9.6 % (2.0-10.0) 02/07/19 05:15 Eosinophils % 24.3 % (0.0-5.0) H 02/07/19 05:15 Basophils % 0.4 % (0.0-2.0) 02/07/19 05:15 Neutrophils (Manual) 36 % (40-80) L 02/07/19 05:15 Lymphocytes 44 % (20-50) 02/07/19 05:15 Monocytes 6 % (2-10) 02/07/19 05:15 Eosinophils 14 % (0-5) H 02/07/19 05:15 Basophils 0 % (0-3) 02/06/19 08:00 Platelet Estimate INCREASED PLATELETS (NORMAL) 02/04/19 17:40 Platelet Morphology NORMAL (NORMAL) 02/04/19 17:40 RBC Morph Micro Appear NORMAL (NORMAL) 02/04/19 17:40 PT 10.2 SECONDS (9.5-11.5) 02/04/19 17:40 INR 0.98 (0.5-1.4) 02/04/19 17:40 PTT (Actin FS) 27.4 SECONDS (26.0-38.0) 02/04/19 17:40 Sodium 141 mEq/L (136-145) 02/07/19 05:15 Potassium 3.6 mEq/L (3.5-5.1) 02/07/19 05:15 Chloride 113 mEq/L (98-107) H 02/07/19 05:15 Carbon Dioxide 20.5 mEq/L (21.0-31.0) L 02/07/19 05:15 Anion Gap 11.1 (7.0-16.0) 02/07/19 05:15 BUN 17 mg/dL (7-25) 02/07/19 05:15 Creatinine 0.6 mg/dL (0.6-1.2) 02/07/19 05:15 Est GFR ( Amer) TNP 02/07/19 05:15 Est GFR (Non-Af Amer) TNP 02/07/19 05:15 BUN/Creatinine Ratio 28.3 02/07/19 05:15 Glucose 116 mg/dL (70-105) H 02/07/19 05:15 POC Glucose 95 MG/DL (70 - 105) 02/04/19 20:52 Whole Bld Lactic Acid 0.83 mmol/L (0.60-1.99) 02/04/19 17:40 Calcium 8.1 mg/dL (8.6-10.3) L 02/07/19 05:15 Phosphorus 3.1 mg/dL (2.5-5.0) 02/06/19 08:00 Magnesium 1.8 mg/dL (1.9-2.7) L 02/07/19 05:15 Total Bilirubin 0.3 mg/dL (0.3-1.0) 02/05/19 14:26 AST 16 U/L (13-39) 02/05/19 14:26 ALT 16 U/L (7-52) 02/05/19 14:26 Alkaline Phosphatase 48 U/L (34-104) 02/05/19 14:26 B-Natriuretic Peptide 157.0 pg/mL (5.0-100.0) H 02/07/19 05:15 Total Protein 7.4 gm/dL (6.0-8.3) 02/05/19 14:26 Albumin 2.8 gm/dL (3.7-5.3) L 02/05/19 14:26 Globulin 4.6 gm/dL 02/05/19 14:26 Albumin/Globulin Ratio 0.6 (1.0-1.8) L 02/05/19 14:26 Triglycerides 74 mg/dL (<150) 02/05/19 14:26 Cholesterol 69 mg/dL (<200) 02/05/19 14:26 Urine Source CATH 02/05/19 05:00 Urine Color YELLOW 02/05/19 05:00 Urine Clarity HAZY (CLEAR) 02/05/19 05:00 Urine pH 7.0 (4.6 - 8.0) 02/05/19 05:00 Ur Specific [place] <= 1.005 (1.005-1.030) 02/05/19 05:00 Urine Protein TRACE mg/dL (NEGATIVE) 02/05/19 05:00 Urine Glucose (UA) NEGATIVE mg/dL (NEGATIVE) 02/05/19 05:00 Urine Ketones NEGATIVE mg/dL (NEGATIVE) 02/05/19 05:00 Urine Blood SMALL (NEGATIVE) H 02/05/19 05:00 Urine Nitrate NEGATIVE (NEGATIVE) 02/05/19 05:00 Urine Bilirubin NEGATIVE (NEGATIVE) 02/05/19 05:00 Urine Urobilinogen 0.2 E.U./dL (0.2 - 1.0) 02/05/19 05:00 Ur Leukocyte Esterase LARGE (NEGATIVE) H 02/05/19 05:00 Urine RBC 2-5 /hpf (0-5) 02/05/19 05:00 Urine WBC 50-100 /hpf (0-5) H 02/05/19 05:00 Ur Epithelial Cells FEW /lpf (FEW) 02/05/19 05:00 Urine Bacteria MODERATE /hpf (NONE SEEN) H 02/05/19 05:00 Vancomycin Trough 13.3 ug/mL (5-10) H 02/06/19 08:00 - Physical Exam Vitals and I&O: Vital Signs Temp 97.5 F 02/07/19 11:43 Pulse 90 02/07/19 11:43 Resp 18 02/07/19 11:43 BP 125/55 02/07/19 11:43 Pulse Ox 100 02/07/19 11:43 Intake & Output 02/06/19 02/07/19 02/07/19 18:59 06:59 18:59 Intake Total 1697.254 5212 Balance 4853.438 5591 Weight (lbs) 44.452 kg Intake: Intake, IV Amount 3760.432 7850 Cefepime 1 gm In Dextrose 50 50 5% 50 ml @ 100 mls/hr IV Q12H [facility] Rx#:[id number] D5-0.9%Ns 1,000 ml @ 80 089.307 6608 mls/hr IV .[id number] [facility] Rx #:[id number] Vancomycin HCl 1 gm In 250 Sodium Chloride 0.9% 250 ml @ 165 mls/hr IV Q24H [facility] Rx#:[id number] Tube Feeding 450 Other 400 Other: # Voids 2 # Bowel Movements 1 Stool Characteristics Soft Soft Brown Brown Weight Source Bedscale Active Medications: Current Medications Acetaminophen (Tylenol 650mg/20.3ml Suspension) 650 mg GT Q4H PRN PRN Reason: MILD PAIN/Fever > 101 Stop: 04/05/19 21:34 Acetaminophen/Hydrocodone Bitart ([place] 5mg/325mg) 1 tab PO Q8H PRN PRN Reason: MODERATE PAIN Stop: 04/06/19 07:52 Al Hydrox/Mg Hydrox/Simethicone (Maalox) 30 ml GT Q6H PRN PRN Reason: INDIGESTION Stop: 04/05/19 21:37 Albuterol Sulfate (Albuterol 2.5mg/3ml Neb Ud) 2.5 mg HHN Q4HR PRN PRN Reason: Shortness of Breath Stop: 04/05/19 21:22 Ascorbic Acid (Vitamin C) 500 mg GT BID [facility] Stop: 04/05/19 21:59 Last Admin: 02/07/19 10:14 Dose: 500 mg [place] Oil/[place] Balsam/Trypsin (Venelex) 1 appl TP DAILY [facility] Stop: 04/07/19 08:59 Last Admin: 02/07/19 10:14 Dose: 1 appl Cholecalciferol (Vitamin D3) 1,000 iu GT DAILY [facility] Stop: 04/06/19 08:59 Last Admin: 02/07/19 10:14 Dose: 1,000 iu Donepezil HCl (Aricept) 10 mg GT HS [facility]EVAN Stop: 04/05/19 21:59 Last Admin: 02/06/19 21:32 Dose: 10 mg Guaifenesin (Robitussin) 200 mg GT Q4HR PRN PRN Reason: Cough Stop: 04/05/19 21:22 Hydrocortisone (Hydrocortisone 1%) 1 appl TP BID [facility] Stop: 04/07/19 08:59 Last Admin: 02/07/19 10:14 Dose: 1 appl Cefepime HCl 1 gm/ Dextrose 50 mls @ 100 mls/hr IV Q12H [facility] Stop: 04/05/19 21:59 Last Infusion: 02/06/19 22:25 Dose: Infused Dextrose/Sodium Chloride (D5-0.9%Ns) 1,000 mls @ 80 mls/hr IV .[id number] [facility] Stop: 04/05/19 21:29 Last Admin: 02/07/19 05:19 Dose: 80 mls/hr Vancomycin HCl 1 gm/ Sodium (Chloride) 250 mls @ 165 mls/hr IV Q24H [facility] Stop: 04/06/19 08:59 Last Admin: 02/07/19 10:13 Dose: 165 mls/hr Loperamide HCl (Imodium) 4 mg GT Q4H PRN PRN Reason: Diarrhea Stop: 04/05/19 21:22 Magnesium Hydroxide (Milk Of Magnesia) 30 ml GT Q8H PRN PRN Reason: Constipation Stop: 04/05/19 21:22 Mirtazapine (Remeron) 7.5 mg GT HS [facility] Stop: 04/05/19 21:59 Last Admin: 02/06/19 21:32 Dose: 7.5 mg Miscellaneous (Vancomycin Iv Per Pharmacy) 1 ea MC PRN [facility] Stop: 04/05/19 21:29 Multivitamins/Minerals (Theragran M) 15 ml GT DAILY [facility] Stop: 04/06/19 08:59 Last Admin: 02/07/19 10:14 Dose: 15 ml Mupirocin (Bactroban Oint) 1 appl NS BID [facility] Stop: 02/11/19 09:01 Last Admin: 02/07/19 10:13 Dose: 1 appl Nitroglycerin (Nitrostat) 0.4 mg SL Q5MIN PRN PRN Reason: Chest Pain Stop: 04/05/19 21:22 Ondansetron HCl (Zofran Odt) 4 mg PO Q8HR PRN PRN Reason: Nausea/ vomiting Stop: 04/05/19 21:22 Pantoprazole Sodium (Protonix) 40 mg IVP DAILY [facility] Stop: 04/07/19 08:59 Last Admin: 02/07/19 10:14 Dose: 40 mg Zinc Sulfate (Zinc Sulfate) 220 mg GT DAILY [facility] Stop: 04/06/19 08:59 Last Admin: 02/07/19 10:14 Dose: 220 mg General: demented HEENT: NC/AT, PERRLA, EOMI Neck: Supple Lungs: congested, rales Cardiovascular: RRR, Normal S1, Normal S2, with murmur Abdomen: soft, globular, +GT, +GT - redness, +GT - discharge, positive bowel sound Extremities: excoriation, contracture Neurological: no change - Procedures Procedures: Procedures Procedure Code Date OTHER GROUP THERAPY 94.44 03/07/14 Internal Medicine Assmt/Plan - Assessment Assessment: ASSESSMENT AND PLAN: G-tube infection, questionable mass, sepsis, leukocytosis , anemia, thrombocytosis, renal insufficiency, protein-calorie malnutrition, dementia, history of stroke, gastroesophageal reflux disorder, uti. - Plan Plan: PLAN: . We will continue the patient on IV antibiotic on Maxipime as well as vanco. Follow the patient's blood culture. We will refer the patient to GI for abdominal CT. We will monitor the patient closely. will follow up ua and cs Nutritional Asmnt/Malnutr-PDOC - Dietary Evaluation Malnutrition Findings (Please click <Entered> for more info): Nutritional Asmnt/Malnutrition Start: 02/05/19 15: 34 Text: Status: Complete Freq: Protocol: Document 02/05/19 15:34 WANDA (Rec: 02/05/19 15:40 WANDA [email or web address]) Nutritional Asmnt/Malnutrition Patient General Information Nutritional Screening High Risk Diagnosis INFECTED G-TUBE SITE Pertinent Medical Hx/Surgical Hx DEMENTIA, DYSPHAGIA WITH G- TUBE, STROKE, GERD, PSYCH DISORDER Subjective Information IA HR, CONSULT: LILI Zhou PT IS A 88 YEAR OLD FEMALE ADMITTED FROM [facility] D/T REDNESS AROUND G-TUBE AREA AND PALPABLE MASS. HT: 54 WT: 98 (44.55 KG) BMI: 16.82 (UNDERWEIGHT) GI: WNL, ACTIVE, SOFT BM: 02/05 X1 I/O: 50/NOT NOTED SKIN: PINK, WARN, DRY, LOOSE, REDNESS TO LANIE UPPER EXTREMITIES, REDNESS AROUND G- TUBE SITE WOUNDS: DECUBITUS ULCER, STAGE IV ON COCCYX (4CM X 2 CM X 1. 5CM) LILI: 11 DIET ORDER: NPO ESTIMATED ENERGY NEEDS: ( GERIATRIC) 1690-5192 KCALS (28-33 KCALS/ KG) 53-67 G PRO (1.2-1.5 G/KG) 3475-0321 ML FLUIDS (30-40 ML/ KG) PT IS CURRENTLY NPO STATUS D/T INFECTED G-TUBE SITE. ONCE G- TUBE FEEDING CAN BE RESUMED, CONSIDER: JEVITY 1.2 @ 60ML/HR X 20 HOURS TO PROVIDE 1440 KCALS AND 67 G PRO TO MEET 100% NUTRITIONAL NEEDS. PROVIDES 968 ML FREE WATER. MEDICATIONS: MAALOX (PRN), ALBUTEROL (PRN), VIT C, VIT D3 , D5-0.9% Ns, IMODIUM (PRN), MOM (PRN), THEREGRAN M, NITROSTAT (PRN), ZOFRAN (PRN), PROTONIX, ZINC SULFATE, VANCOMYCIN HCL 1GM IN NACL @ 165ML/HR Current Diet Order/ Nutrition Support NPO Pertinent Medications MAALOX (PRN), ALBUTEROL (PRN), VIT C, VIT D3, D5-0.9% Ns, IMODIUM (PRN), MOM (PRN), THEREGRAN M, NITROSTAT (PRN), ZOFRAN (PRN), PROTONIX, ZINC SULFATE, VANCOMYCIN HCL 1GM IN NACL @165ML/HR Pertinent Labs 02/04: HGB/HCT 9.4/27.5, BUN/CR 41/0.7, T BILI 0.2, ALB 3.0 Nutritional Hx/Data Height 1.63 m Height (Calculated Centimeters) 162.6 Current Weight (lbs) 44.452 kg Weight (Calculated Kilograms) 44.5 Weight (Calculated Grams) 12477.1 Transfer Body Weight 120 % Transfer Body Weight 82 Body Mass Index (BMI) 16.8 Weight Status Underweight GI Symptoms Last BM 02/05 X1 Skin Integrity/Comment: PINK, WARN, DRY, LOOSE, REDNESS TO LANIE UPPER EXTREMITIES, REDNESS AROUND G- TUBE SITE WOUNDS: DECUBITUS ULCER, STAGE IV ON COCCYX (4CM X 2 CM X 1. 5CM) Current %PO Negligible < 25% Estimated Nutritional Goals BEE in Kcals: Using Current wt Calories/Kcals/Kg 28-33 Kcals Calculated 4699-5899 Protein: Using Current wt Protein g/k.2-1.5 Protein Calculated 53-67 Fluid: ml 5083-1246 Nutritional Problem 1. Problem Problem INADEQUATE ENERGY AND PROTEIN INTAKE Etiology R/T G-TUBE INFECTION Signs/Symptoms: AEB NPO STATUS Malnutrition Related to Morbid Obesity Malnutrition related to morbid obesity No Intervention/Recommendation Comments 1.CONTINUE NPO STATUS MEDICALLY APPROPRIATE. ONCE G- TUBE FEEDING CAN BE RESUMED, CONSIDER: JEVITY 1.2 @ 60ML/HR X 20 HOURS TO PROVIDE 1440 KCALS AND 67 G PRO TO MEET 100% NUTRITIONAL NEEDS. PROVIDES 968 ML FREE WATER. Expected Outcomes/Goals Expected Outcomes/Goals 1. MONITOR NPO STATUS 2. MONITOR WT, NUTRITION RELATED LABS, AND SKIN INTEGRITY TO TREND WNL 3. F/U HIGH RISK IN 1-2 DAYS, 02/06-02/07
--- NOTE | 2019-02-07 13:16 | GI Progress Note ---
Subjective - Review of Systems Service Date: 02/07/19 Events since last encounter: No new events, tolerating tube feeds GI OBJECTIVE - Results Result Diagrams: 02/07/19 05:15 02/07/19 05:15 Recent Labs: Laboratory Last Values WBC 10.8 Th/cmm (4.8-10.8) 02/07/19 05:15 RBC 2.57 Mil/cmm (3.80-5.20) L 02/07/19 05:15 Hgb 8.0 gm/dL (12-16) L 02/07/19 05:15 Hct 24.3 % (41.0-60) L 02/07/19 05:15 MCV 94.4 fl (81-100) 02/07/19 05:15 MCH 31.2 pg (27.0-31.0) H 02/07/19 05:15 MCHC Differential 33.1 pg (28.0-36.0) 02/07/19 05:15 RDW 13.4 % (11.5-20.0) 02/07/19 05:15 Plt Count 363 Th/cmm (150-400) 02/07/19 05:15 MPV 7.3 fl 02/07/19 05:15 Add Manual Diff YES 02/06/19 08:00 Neutrophils % 42.0 % (40.0-80.0) 02/07/19 05:15 Band Neutrophils % 1 % (0-10) 02/06/19 08:00 Lymphocytes % 23.7 % (20.0-50.0) 02/07/19 05:15 Monocytes % 9.6 % (2.0-10.0) 02/07/19 05:15 Eosinophils % 24.3 % (0.0-5.0) H 02/07/19 05:15 Basophils % 0.4 % (0.0-2.0) 02/07/19 05:15 Neutrophils (Manual) 36 % (40-80) L 02/07/19 05:15 Lymphocytes 44 % (20-50) 02/07/19 05:15 Monocytes 6 % (2-10) 02/07/19 05:15 Eosinophils 14 % (0-5) H 02/07/19 05:15 Basophils 0 % (0-3) 02/06/19 08:00 Platelet Estimate INCREASED PLATELETS (NORMAL) 02/04/19 17:40 Platelet Morphology NORMAL (NORMAL) 02/04/19 17:40 RBC Morph Micro Appear NORMAL (NORMAL) 02/04/19 17:40 PT 10.2 SECONDS (9.5-11.5) 02/04/19 17:40 INR 0.98 (0.5-1.4) 02/04/19 17:40 PTT (Actin FS) 27.4 SECONDS (26.0-38.0) 02/04/19 17:40 Sodium 141 mEq/L (136-145) 02/07/19 05:15 Potassium 3.6 mEq/L (3.5-5.1) 02/07/19 05:15 Chloride 113 mEq/L (98-107) H 02/07/19 05:15 Carbon Dioxide 20.5 mEq/L (21.0-31.0) L 02/07/19 05:15 Anion Gap 11.1 (7.0-16.0) 02/07/19 05:15 BUN 17 mg/dL (7-25) 02/07/19 05:15 Creatinine 0.6 mg/dL (0.6-1.2) 02/07/19 05:15 Est GFR ( Amer) TNP 02/07/19 05:15 Est GFR (Non-Af Amer) TNP 02/07/19 05:15 BUN/Creatinine Ratio 28.3 02/07/19 05:15 Glucose 116 mg/dL (70-105) H 02/07/19 05:15 POC Glucose 95 MG/DL (70 - 105) 02/04/19 20:52 Whole Bld Lactic Acid 0.83 mmol/L (0.60-1.99) 02/04/19 17:40 Calcium 8.1 mg/dL (8.6-10.3) L 02/07/19 05:15 Phosphorus 3.1 mg/dL (2.5-5.0) 02/06/19 08:00 Magnesium 1.8 mg/dL (1.9-2.7) L 02/07/19 05:15 Total Bilirubin 0.3 mg/dL (0.3-1.0) 02/05/19 14:26 AST 16 U/L (13-39) 02/05/19 14:26 ALT 16 U/L (7-52) 02/05/19 14:26 Alkaline Phosphatase 48 U/L (34-104) 02/05/19 14:26 B-Natriuretic Peptide 157.0 pg/mL (5.0-100.0) H 02/07/19 05:15 Total Protein 7.4 gm/dL (6.0-8.3) 02/05/19 14:26 Albumin 2.8 gm/dL (3.7-5.3) L 02/05/19 14:26 Globulin 4.6 gm/dL 02/05/19 14:26 Albumin/Globulin Ratio 0.6 (1.0-1.8) L 02/05/19 14:26 Triglycerides 74 mg/dL (<150) 02/05/19 14:26 Cholesterol 69 mg/dL (<200) 02/05/19 14:26 Urine Source CATH 02/05/19 05:00 Urine Color YELLOW 02/05/19 05:00 Urine Clarity HAZY (CLEAR) 02/05/19 05:00 Urine pH 7.0 (4.6 - 8.0) 02/05/19 05:00 Ur Specific [place] <= 1.005 (1.005-1.030) 02/05/19 05:00 Urine Protein TRACE mg/dL (NEGATIVE) 02/05/19 05:00 Urine Glucose (UA) NEGATIVE mg/dL (NEGATIVE) 02/05/19 05:00 Urine Ketones NEGATIVE mg/dL (NEGATIVE) 02/05/19 05:00 Urine Blood SMALL (NEGATIVE) H 02/05/19 05:00 Urine Nitrate NEGATIVE (NEGATIVE) 02/05/19 05:00 Urine Bilirubin NEGATIVE (NEGATIVE) 02/05/19 05:00 Urine Urobilinogen 0.2 E.U./dL (0.2 - 1.0) 02/05/19 05:00 Ur Leukocyte Esterase LARGE (NEGATIVE) H 02/05/19 05:00 Urine RBC 2-5 /hpf (0-5) 02/05/19 05:00 Urine WBC 50-100 /hpf (0-5) H 02/05/19 05:00 Ur Epithelial Cells FEW /lpf (FEW) 02/05/19 05:00 Urine Bacteria MODERATE /hpf (NONE SEEN) H 02/05/19 05:00 Vancomycin Trough 13.3 ug/mL (5-10) H 02/06/19 08:00 - Physical Exam Vitals and I&O: Vital Signs Temp 97.5 F 02/07/19 11:43 Pulse 90 02/07/19 11:43 Resp 18 02/07/19 11:43 BP 125/55 02/07/19 11:43 Pulse Ox 100 02/07/19 11:43 Intake & Output 02/06/19 02/07/19 02/07/19 18:59 06:59 18:59 Intake Total 4560.752 9335 Balance 6102.605 6328 Weight (lbs) 44.452 kg Intake: Intake, IV Amount 2765.486 9389 Cefepime 1 gm In Dextrose 50 50 5% 50 ml @ 100 mls/hr IV Q12H [facility] Rx#:[id number] D5-0.9%Ns 1,000 ml @ 80 365.243 4972 mls/hr IV .[id number] [facility] Rx #:[id number] Vancomycin HCl 1 gm In 250 Sodium Chloride 0.9% 250 ml @ 165 mls/hr IV Q24H [facility] Rx#:[id number] Tube Feeding 450 Other 400 Other: # Voids 2 # Bowel Movements 1 Stool Characteristics Soft Soft Soft Brown Brown Brown Weight Source Bedscale Active Medications: Current Medications Acetaminophen (Tylenol 650mg/20.3ml Suspension) 650 mg GT Q4H PRN PRN Reason: MILD PAIN/Fever > 101 Stop: 04/05/19 21:34 Acetaminophen/Hydrocodone Bitart ([place] 5mg/325mg) 1 tab PO Q8H PRN PRN Reason: MODERATE PAIN Stop: 04/06/19 07:52 Al Hydrox/Mg Hydrox/Simethicone (Maalox) 30 ml GT Q6H PRN PRN Reason: INDIGESTION Stop: 04/05/19 21:37 Albuterol Sulfate (Albuterol 2.5mg/3ml Neb Ud) 2.5 mg HHN Q4HR PRN PRN Reason: Shortness of Breath Stop: 04/05/19 21:22 Ascorbic Acid (Vitamin C) 500 mg GT BID [facility] Stop: 04/05/19 21:59 Last Admin: 02/07/19 10:14 Dose: 500 mg [place] Oil/[place] Balsam/Trypsin (Venelex) 1 appl TP DAILY [facility] Stop: 04/07/19 08:59 Last Admin: 02/07/19 10:14 Dose: 1 appl Cholecalciferol (Vitamin D3) 1,000 iu GT DAILY [facility] Stop: 04/06/19 08:59 Last Admin: 02/07/19 10:14 Dose: 1,000 iu Donepezil HCl (Aricept) 10 mg GT HS [facility] Stop: 04/05/19 21:59 Last Admin: 02/06/19 21:32 Dose: 10 mg Guaifenesin (Robitussin) 200 mg GT Q4HR PRN PRN Reason: Cough Stop: 04/05/19 21:22 Hydrocortisone (Hydrocortisone 1%) 1 appl TP BID [facility] Stop: 04/07/19 08:59 Last Admin: 02/07/19 10:14 Dose: 1 appl Cefepime HCl 1 gm/ Dextrose 50 mls @ 100 mls/hr IV Q12H [facility] Stop: 04/05/19 21:59 Last Infusion: 02/06/19 22:25 Dose: Infused Dextrose/Sodium Chloride (D5-0.9%Ns) 1,000 mls @ 80 mls/hr IV .[id number] [facility] Stop: 04/05/19 21:29 Last Admin: 02/07/19 05:19 Dose: 80 mls/hr Vancomycin HCl 1 gm/ Sodium (Chloride) 250 mls @ 165 mls/hr IV Q24H [facility] Stop: 04/06/19 08:59 Last Admin: 02/07/19 10:13 Dose: 165 mls/hr Loperamide HCl (Imodium) 4 mg GT Q4H PRN PRN Reason: Diarrhea Stop: 04/05/19 21:22 Magnesium Hydroxide (Milk Of Magnesia) 30 ml GT Q8H PRN PRN Reason: Constipation Stop: 04/05/19 21:22 Mirtazapine (Remeron) 7.5 mg GT HS [facility] Stop: 04/05/19 21:59 Last Admin: 02/06/19 21:32 Dose: 7.5 mg Miscellaneous (Vancomycin Iv Per Pharmacy) 1 ea MC PRN [facility] Stop: 04/05/19 21:29 Multivitamins/Minerals (Theragran M) 15 ml GT DAILY [facility] Stop: 04/06/19 08:59 Last Admin: 02/07/19 10:14 Dose: 15 ml Mupirocin (Bactroban Oint) 1 appl NS BID [facility] Stop: 02/11/19 09:01 Last Admin: 02/07/19 10:13 Dose: 1 appl Nitroglycerin (Nitrostat) 0.4 mg SL Q5MIN PRN PRN Reason: Chest Pain Stop: 04/05/19 21:22 Ondansetron HCl (Zofran Odt) 4 mg PO Q8HR PRN PRN Reason: Nausea/ vomiting Stop: 04/05/19 21:22 Pantoprazole Sodium (Protonix) 40 mg IVP DAILY [facility] Stop: 04/07/19 08:59 Last Admin: 02/07/19 10:14 Dose: 40 mg Zinc Sulfate (Zinc Sulfate) 220 mg GT DAILY [facility] Stop: 04/06/19 08:59 Last Admin: 02/07/19 10:14 Dose: 220 mg General: Cooperative HEENT: PERRLA, EOMI Cardiovascular: Regular rate, Normal S1, Normal S2 Lungs: Clear to auscultation Abdomen: Bowel sounds - Procedures Procedures: Procedures Procedure Code Date OTHER GROUP THERAPY 94.44 03/07/14 Assessment/Plan - Assessment Assessment: 1. G tube malfunction 2. Sepsis -Her abdomen is soft, periG tube area appears to be relatively free of celulitis and no G tube leakage -Recommend resuming G tube feeds -Would recommend coverage with IV antibiotics in the event she has a subcutaneous abscess where previous G tube was malpositioned
[2019-02-08] MEDS: D5-0.9%NS 1,000 ML IV SCH (06:38)
[2019-02-08 06:40] LABS: HEMOGLOBIN 9.1 gm/dL (12-16); MEAN CELL VOLUME 93.7 fl (81-100); MEAN CORPUSCULAR HEMOGLOBIN 31.6 pg (27.0-31.0); MEAN CORPUSCULAR HGB CONC 33.8 pg (28.0-36.0); PLATELET COUNT 409 Th/cmm (150-400); RED BLOOD COUNT 2.88 Mil/cmm (3.80-5.20); RED CELL DISTRIBUTION WIDTH 13.3 % (11.5-20.0); WHITE BLOOD COUNT 10.5 Th/cmm (4.8-10.8)
[2019-02-08 07:56] LABS: BAND NEUTROPHILE 0 % (0-10); BASOPHIL 0 % (0-3); EOSINOPHIL 19 % (0-5); LYMPHOCYTE 26 % (20-50); MONOCYTE 7 % (2-10); NEUTROPHILS 48 % (40-80)
[2019-02-08] MEDS: Multivitamin w/ Minerals 15 mL UDC GT SCH (09:29)
[2019-02-08] MEDS: Venelex 60gm Tube TP SCH (09:29)
--- NOTE | 2019-02-08 09:56 | GI Progress Note ---
Subjective - Review of Systems Service Date: 02/08/19 Events since last encounter: No new events GI OBJECTIVE - Results Result Diagrams: 02/08/19 06:10 02/07/19 05:15 Recent Labs: Laboratory Last Values WBC 10.5 Th/cmm (4.8-10.8) 02/08/19 06:10 RBC 2.88 Mil/cmm (3.80-5.20) L 02/08/19 06:10 Hgb 9.1 gm/dL (12-16) L 02/08/19 06:10 Hct 27.0 % (41.0-60) L 02/08/19 06:10 MCV 93.7 fl (81-100) 02/08/19 06:10 MCH 31.6 pg (27.0-31.0) H 02/08/19 06:10 MCHC Differential 33.8 pg (28.0-36.0) 02/08/19 06:10 RDW 13.3 % (11.5-20.0) 02/08/19 06:10 Plt Count 409 Th/cmm (150-400) H 02/08/19 06:10 MPV 7.5 fl 02/08/19 06:10 Add Manual Diff YES 02/08/19 06:10 Neutrophils % 42.0 % (40.0-80.0) 02/07/19 05:15 Band Neutrophils % 0 % (0-10) 02/08/19 06:10 Lymphocytes % 23.7 % (20.0-50.0) 02/07/19 05:15 Monocytes % 9.6 % (2.0-10.0) 02/07/19 05:15 Eosinophils % 24.3 % (0.0-5.0) H 02/07/19 05:15 Basophils % 0.4 % (0.0-2.0) 02/07/19 05:15 Neutrophils (Manual) 48 % (40-80) 02/08/19 06:10 Lymphocytes 26 % (20-50) 02/08/19 06:10 Monocytes 7 % (2-10) 02/08/19 06:10 Eosinophils 19 % (0-5) H 02/08/19 06:10 Basophils 0 % (0-3) 02/08/19 06:10 Platelet Estimate INCREASED PLATELETS (NORMAL) 02/04/19 17:40 Platelet Morphology NORMAL (NORMAL) 02/04/19 17:40 RBC Morph Micro Appear NORMAL (NORMAL) 02/04/19 17:40 PT 10.2 SECONDS (9.5-11.5) 02/04/19 17:40 INR 0.98 (0.5-1.4) 02/04/19 17:40 PTT (Actin FS) 27.4 SECONDS (26.0-38.0) 02/04/19 17:40 Sodium 141 mEq/L (136-145) 02/07/19 05:15 Potassium 3.6 mEq/L (3.5-5.1) 02/07/19 05:15 Chloride 113 mEq/L (98-107) H 02/07/19 05:15 Carbon Dioxide 20.5 mEq/L (21.0-31.0) L 02/07/19 05:15 Anion Gap 11.1 (7.0-16.0) 02/07/19 05:15 BUN 17 mg/dL (7-25) 02/07/19 05:15 Creatinine 0.6 mg/dL (0.6-1.2) 02/07/19 05:15 Est GFR ( Amer) TNP 02/07/19 05:15 Est GFR (Non-Af Amer) TNP 02/07/19 05:15 BUN/Creatinine Ratio 28.3 02/07/19 05:15 Glucose 116 mg/dL (70-105) H 02/07/19 05:15 POC Glucose 95 MG/DL (70 - 105) 02/04/19 20:52 Whole Bld Lactic Acid 0.83 mmol/L (0.60-1.99) 02/04/19 17:40 Calcium 8.1 mg/dL (8.6-10.3) L 02/07/19 05:15 Phosphorus 3.1 mg/dL (2.5-5.0) 02/06/19 08:00 Magnesium 1.8 mg/dL (1.9-2.7) L 02/07/19 05:15 Total Bilirubin 0.3 mg/dL (0.3-1.0) 02/05/19 14:26 AST 16 U/L (13-39) 02/05/19 14:26 ALT 16 U/L (7-52) 02/05/19 14:26 Alkaline Phosphatase 48 U/L (34-104) 02/05/19 14:26 B-Natriuretic Peptide 157.0 pg/mL (5.0-100.0) H 02/07/19 05:15 Total Protein 7.4 gm/dL (6.0-8.3) 02/05/19 14:26 Albumin 2.8 gm/dL (3.7-5.3) L 02/05/19 14:26 Globulin 4.6 gm/dL 02/05/19 14:26 Albumin/Globulin Ratio 0.6 (1.0-1.8) L 02/05/19 14:26 Triglycerides 74 mg/dL (<150) 02/05/19 14:26 Cholesterol 69 mg/dL (<200) 02/05/19 14:26 Urine Source CATH 02/05/19 05:00 Urine Color YELLOW 02/05/19 05:00 Urine Clarity HAZY (CLEAR) 02/05/19 05:00 Urine pH 7.0 (4.6 - 8.0) 02/05/19 05:00 Ur Specific [place] <= 1.005 (1.005-1.030) 02/05/19 05:00 Urine Protein TRACE mg/dL (NEGATIVE) 02/05/19 05:00 Urine Glucose (UA) NEGATIVE mg/dL (NEGATIVE) 02/05/19 05:00 Urine Ketones NEGATIVE mg/dL (NEGATIVE) 02/05/19 05:00 Urine Blood SMALL (NEGATIVE) H 02/05/19 05:00 Urine Nitrate NEGATIVE (NEGATIVE) 02/05/19 05:00 Urine Bilirubin NEGATIVE (NEGATIVE) 02/05/19 05:00 Urine Urobilinogen 0.2 E.U./dL (0.2 - 1.0) 02/05/19 05:00 Ur Leukocyte Esterase LARGE (NEGATIVE) H 02/05/19 05:00 Urine RBC 2-5 /hpf (0-5) 02/05/19 05:00 Urine WBC 50-100 /hpf (0-5) H 02/05/19 05:00 Ur Epithelial Cells FEW /lpf (FEW) 02/05/19 05:00 Urine Bacteria MODERATE /hpf (NONE SEEN) H 02/05/19 05:00 Vancomycin Trough 13.3 ug/mL (5-10) H 02/06/19 08:00 - Physical Exam Vitals and I&O: Vital Signs Temp 98.2 F 02/08/19 08:00 Pulse 99 02/08/19 08:00 Resp 20 02/08/19 08:00 BP 151/69 02/08/19 08:00 Pulse Ox 99 02/08/19 08:00 Intake & Output 02/07/19 02/08/19 02/08/19 18:59 06:59 18:59 Intake Total 1750 992 Balance 1750 992 Weight (lbs) 44.452 kg 44.452 kg Intake: Intake, IV Amount 1300 692 Cefepime 1 gm In Dextrose 50 5% 50 ml @ 100 mls/hr IV Q12H [facility] Rx#:[id number] D5-0.9%Ns 1,000 ml @ 80 1000 692 mls/hr IV .[id number] [facility] Rx #:[id number] Vancomycin HCl 1 gm In 250 Sodium Chloride 0.9% 250 ml @ 165 mls/hr IV Q24H [facility] Rx#:[id number] Tube Feeding 450 300 Other: # Voids 2 1 # Bowel Movements 1 1 Stool Characteristics Soft Soft Brown Brown Weight Source Bedscale Bedscale Active Medications: Current Medications Acetaminophen (Tylenol 650mg/20.3ml Suspension) 650 mg GT Q4H PRN PRN Reason: MILD PAIN/Fever > 101 Stop: 04/05/19 21:34 Acetaminophen/Hydrocodone Bitart ([place] 5mg/325mg) 1 tab PO Q8H PRN PRN Reason: MODERATE PAIN Stop: 04/06/19 07:52 Al Hydrox/Mg Hydrox/Simethicone (Maalox) 30 ml GT Q6H PRN PRN Reason: INDIGESTION Stop: 04/05/19 21:37 Albuterol Sulfate (Albuterol 2.5mg/3ml Neb Ud) 2.5 mg HHN Q4HR PRN PRN Reason: Shortness of Breath Stop: 04/05/19 21:22 Ascorbic Acid (Vitamin C) 500 mg GT BID [facility] Stop: 04/05/19 21:59 Last Admin: 02/08/19 09:29 Dose: 500 mg [place] Oil/[place] Balsam/Trypsin (Venelex) 1 appl TP DAILY [facility] Stop: 04/07/19 08:59 Last Admin: 02/08/19 09:29 Dose: 1 appl Cholecalciferol (Vitamin D3) 1,000 iu GT DAILY [facility] Stop: 04/06/19 08:59 Last Admin: 02/08/19 09:29 Dose: 1,000 iu Donepezil HCl (Aricept) 10 mg GT HS [facility] Stop: 04/05/19 21:59 Last Admin: 02/07/19 21:59 Dose: 10 mg Guaifenesin (Robitussin) 200 mg GT Q4HR PRN PRN Reason: Cough Stop: 04/05/19 21:22 Hydrocortisone (Hydrocortisone 1%) 1 appl TP BID [facility] Stop: 04/07/19 08:59 Last Admin: 02/08/19 09:30 Dose: 1 appl Cefepime HCl 1 gm/ Dextrose 50 mls @ 100 mls/hr IV Q12H [facility] Stop: 04/05/19 21:59 Last Admin: 02/07/19 21:58 Dose: 100 mls/hr Dextrose/Sodium Chloride (D5-0.9%Ns) 1,000 mls @ 80 mls/hr IV .[id number] [facility] Stop: 04/05/19 21:29 Last Admin: 02/08/19 06:38 Dose: 80 mls/hr Vancomycin HCl 1 gm/ Sodium (Chloride) 250 mls @ 165 mls/hr IV Q24H [facility] Stop: 04/06/19 08:59 Last Admin: 02/08/19 09:29 Dose: 165 mls/hr Loperamide HCl (Imodium) 4 mg GT Q4H PRN PRN Reason: Diarrhea Stop: 04/05/19 21:22 Magnesium Hydroxide (Milk Of Magnesia) 30 ml GT Q8H PRN PRN Reason: Constipation Stop: 04/05/19 21:22 Mirtazapine (Remeron) 7.5 mg GT HS [facility] Stop: 04/05/19 21:59 Last Admin: 02/07/19 21:58 Dose: 7.5 mg Miscellaneous (Vancomycin Iv Per Pharmacy) 1 ea MC PRN [facility] Stop: 04/05/19 21:29 Multivitamins/Minerals (Theragran M) 15 ml GT DAILY [facility] Stop: 04/06/19 08:59 Last Admin: 02/08/19 09:29 Dose: 15 ml Mupirocin (Bactroban Oint) 1 appl NS BID [facility] Stop: 02/11/19 09:01 Last Admin: 02/08/19 09:30 Dose: 1 appl Nitroglycerin (Nitrostat) 0.4 mg SL Q5MIN PRN PRN Reason: Chest Pain Stop: 04/05/19 21:22 Ondansetron HCl (Zofran Odt) 4 mg PO Q8HR PRN PRN Reason: Nausea/ vomiting Stop: 04/05/19 21:22 Pantoprazole Sodium (Protonix) 40 mg IVP DAILY [facility] Stop: 04/07/19 08:59 Last Admin: 02/08/19 09:29 Dose: 40 mg Zinc Sulfate (Zinc Sulfate) 220 mg GT DAILY [facility] Stop: 04/06/19 08:59 Last Admin: 02/08/19 09:29 Dose: 220 mg General: Alert HEENT: PERRLA, EOMI Neck: JVD Cardiovascular: Regular rate Lungs: Clear to auscultation Abdomen: Bowel sounds (g tube site looks good) - Procedures Procedures: Procedures Procedure Code Date OTHER GROUP THERAPY 94.44 03/07/14 Assessment/Plan - Assessment Assessment: 1. G tube malfunction 2. Sepsis -Her abdomen is soft, periG tube area appears to be relatively free of celulitis and no G tube leakage -Recommend resuming G tube feeds -Would recommend coverage with IV antibiotics in the event she has a subcutaneous abscess where previous G tube was malpositioned
--- NOTE | 2019-02-08 16:45 | Discharge Summary ---
DATE OF DISCHARGE: 02/08/2019 CHIEF COMPLAINT: Redness around the G-tube and palpable mass. FINAL DIAGNOSES: G-tube cellulitis, malfunction, leukocytosis, anemia, culture positive for Proteus, thrombocytosis, renal insufficiency, protein-calorie malnutrition, dementia, history of stroke, GERD, functional quadriplegia. HISTORY: This is an 88-year-old female with history of dementia, dysphagia, stroke, GERD, psych disorder, admitted from nursing facility secondary to redness and secretion coming out from the G-tube area. The patient admitted through the ER. PHYSICAL EXAMINATION: VITAL SIGNS: Blood pressure , respirations 20, pulse 97, temperature 99.2. GENERAL: Elderly female, appears her stated age. NECK: Supple. No mass. LUNGS: Equal breath sounds, few rhonchi. HEART: Regular rate and rhythm with systolic ejection murmur. ABDOMEN: Soft, globular. EXTREMITIES: Positive excoriation. NEUROLOGIC: Limited. HOSPITAL COURSE: The patient was admitted to telemetry, continue IV hydration, IV antibiotic, on IV Zosyn. Culture came back positive for Proteus. The patient was seen by GI for removal and replacement of G-tube. Apparently per radiologist tissue. The patient to continue IV antibiotic and to be transferred to long-term acute care. CONDITION ON DISCHARGE: Fair. DISCHARGE INSTRUCTIONS: The patient to continue IV antibiotic. JOB# [id number]
== END 2019-02-08 15:30 | DRG 393 ==
LOC: ER 16:02 → TELE 19:35
PROVIDERS: ADMIT Internal Medicine; ATTEND Internal Medicine
PROC: 0D20XUZ Change Feeding Device in Upper Intestinal Tract, External Approach (ICD-10-PCS; principal; 2019-02-05)
DX: K94.22 Gastrostomy infection (principal); A41.9 Sepsis, unspecified organism; R53.2 Functional quadriplegia; E46 Unspecified protein-calorie malnutrition; L03.311 Cellulitis of abdominal wall; Z68.1 Body mass index [BMI] 19.9 or less, adult; N39.0 Urinary tract infection, site not specified; D64.9 Anemia, unspecified; F03.90 Unspecified dementia, unspecified severity, without behavioral disturbance, psychotic disturbance, mood disturbance, and anxiety; K21.9 Gastro-esophageal reflux disease without esophagitis; Y83.3 Surgical operation with formation of external stoma as the cause of abnormal reaction of the patient, or of later complication, without mention of misadventure at the time of the procedure; Y92.89 Other specified places as the place of occurrence of the external cause; B96.4 Proteus (mirabilis) (morganii) as the cause of diseases classified elsewhere; D47.3 Essential (hemorrhagic) thrombocythemia; J44.9 Chronic obstructive pulmonary disease, unspecified; Z88.2 Allergy status to sulfonamides; Z86.73 Personal history of transient ischemic attack (TIA), and cerebral infarction without residual deficits; Z66 Do not resuscitate
CPT/HCPCS: 36415-UA; 80048-TC; 80053-TC; 80202-TC; 81001-TC; 82465-TC; 82948-90; 83605; 83735-TC; 83880-TC; 84100-TC; 84478-TC; 85007-TC; 85025-TC; 85610-TC; 87070-90; 87086-90; 94760; C9113; J0692; J3370; J7042; Z7610